=== PATIENT | male | born 1955 | race Asian ===

== ENCOUNTER 2022-11-22 18:55 | Inpatient (IN) | payer OTHER ==
[2022-11-22 19:34] VITALS: BMI 35.5
[2022-11-22] MEDS ORDERED: ACETAMINOPHEN 1000 MG/100 ML BAG IVPB ONE (20:02)
[2022-11-22] MEDS ORDERED: morphine SULFATE 4 MG/ML VIAL IVPUSH ONE (20:03)
[2022-11-22] MEDS ORDERED: ONDANSETRON 4 MG/2 ML VIAL IVPUSH ONE (20:03)
[2022-11-22] MEDS ORDERED: morphine CARPU-JECT 4 MG/1 ML DISP.SYRIN IVPUSH ONE (20:03)
[2022-11-22] MEDS ORDERED: morphine SULFATE 4 MG/ML VIAL ONE (20:14)
[2022-11-22 23:10] LABS: BASO % 0.6 % (0-2.0); EOS % 4.9 % (0-4.5); HEMATOCRIT 45.3 % (35.4-49); LYMPH % 34.3 % (8-40); MCH 29.2 pg (25.7-33.7); MCHC 33.2 g/dl (32.0-35.9); MEAN CELL VOLUME 88.1 fl (80-96); MEAN PLT VOLUME 8.1 fl (7.5-11.1); MONO % 9.9 % (3.8-10.2); NEUT % 50.3 % (42.8-82.8); PLATELET COUNT 199 10^3/uL (134-434); RBC 5.14 M/mm3 (4.00-5.60); RDW 14.5 % (11.9-15.9)
[2022-11-22 23:20] LABS: INR 0.97 (0.83-1.09); PROTHROMBIN TIME (PATIENT) 11.3 SEC (9.7-13.0)
[2022-11-22 23:23] LABS: ACTIVATED PTT 31.6 SECONDS (25.2-36.5)
[2022-11-23] LABS: POTASSIUM 4.4 mmol/L (3.5-5.1)
[2022-11-23 00:04] LABS: ALBUMIN 3.9 g/dl (3.4-5.0); BLOOD UREA NITROGEN 26.7 mg/dL (7-18); CALCIUM 7.6 mg/dL (8.5-10.1)
[2022-11-23 00:07] LABS: CREATININE 1.2 mg/dL (0.55-1.3)
[2022-11-23 00:09] LABS: BILIRUBIN,TOTAL 0.9 mg/dL (0.2-1); TOT PROT 7.7 g/dl (6.4-8.2)
[2022-11-23 00:51] LABS: LIPASE 508 U/L (73-393)
[2022-11-23] MEDS ORDERED: SODIUM CHLORIDE 0.9% 500 ML INFUS.BAG IV ONE (01:03)
[2022-11-23 01:07] LABS: EPI CELLS 2 /uL (0-25.1); HYALINE CASTS 0 /uL (0-3.1); PH,URINE 5.5 (5.0-8.0); URINE APPEARANCE CLEAR; URINE BACTERIA 0 /uL (0-1359); URINE BILIRUBIN NEGATIVE (NEGATIVE); URINE COLOR YELLOW; URINE GLUCOSE (UA) NEGATIVE (NEGATIVE); URINE KETONE NEGATIVE (NEGATIVE); URINE LEUK ESTERASE NEGATIVE (NEGATIVE); URINE NITRITE NEGATIVE (NEGATIVE); URINE PROTEIN 1+ (NEGATIVE); URINE RBC 13 /uL (0-23.9); URINE UROBILINOGEN 0.2 mg/dL (0.2-1.0); URINE WBC 2 /uL (0-25.8)
[2022-11-23 02:35] LABS: CHOLESTEROL 178 mg/dL (50-200)
[2022-11-23 02:36] LABS: LDL CHOLESTEROL (ONLY SJRH) 104 mg/dL (5-100)
[2022-11-23 02:38] LABS: HDL CHOLESTEROL 38 mg/dL (40-60)
[2022-11-23] MEDS ORDERED: KETOROLAC TROMETHAMINE 15 MG/ML VIAL IVPUSH ONE (03:00)
[2022-11-23] MEDS ORDERED: TRIMETHOBENZAMIDE HCL 200MG/2ML INJ IM PRN (04:17)
[2022-11-23] MEDS: LACTATED RINGERS SOLUTION 1,000 ML IV SCH (06:29)
[2022-11-23 06:48] LABS: HEMATOCRIT 43.4 % (35.4-49); HEMOGLOBIN 14.6 GM/dL (11.7-16.9); MCH 29.9 pg (25.7-33.7); MCHC 33.6 g/dl (32.0-35.9); MEAN PLT VOLUME 8.2 fl (7.5-11.1); PLATELET COUNT 188 10^3/uL (134-434); RBC 4.88 M/mm3 (4.00-5.60); RDW 14.5 % (11.9-15.9); WHITE BLOOD COUNT 4.7 K/mm3 (4.0-10.0)
[2022-11-23 07:04] LABS: POTASSIUM 4.4 mmol/L (3.5-5.1)
[2022-11-23 07:08] LABS: BLOOD UREA NITROGEN 24.4 mg/dL (7-18); CALCIUM 7.1 mg/dL (8.5-10.1)
[2022-11-23 07:09] LABS: ALBUMIN 3.6 g/dl (3.4-5.0)
[2022-11-23 07:11] LABS: PHOSPHOROUS 5.3 mg/dL (2.5-4.9)
[2022-11-23 07:12] LABS: CREATININE 1.2 mg/dL (0.55-1.3)
[2022-11-23 07:13] LABS: BILIRUBIN,TOTAL 0.7 mg/dL (0.2-1)
[2022-11-23] MEDS ORDERED: NICOTINE 21 MG/24 HOURS TOPICAL PATCH ONE (08:26)
[2022-11-23] MEDS ORDERED: LIDOCAINE 5% TOPICAL PATCH ONE (08:27)
[2022-11-23] MEDS ORDERED: HEPARIN NA (PORCINE) 5,000 UNITS/ML 1ML VIAL ONE (08:27)
[2022-11-23] MEDS ORDERED: KETOROLAC TROMETHAMINE 15 MG/ML VIAL ONE (08:27)
[2022-11-23] MEDS: INSULIN SLIDING SCALE (NOVOLOG) 1 VIAL SQ SCH ×3 (08:32→17:53)
[2022-11-23] MEDS: KETOROLAC TROMETHAMINE 15 MG/ML VIAL IVPUSH PRN ×2 (08:45→20:29)
[2022-11-23 10:20] LABS: HEMATOCRIT 43.3 % (35.4-49); HEMOGLOBIN 14.5 GM/dL (11.7-16.9); MCH 29.8 pg (25.7-33.7); MCHC 33.6 g/dl (32.0-35.9); MEAN CELL VOLUME 88.9 fl (80-96); MEAN PLT VOLUME 8.7 fl (7.5-11.1); PLATELET COUNT 194 10^3/uL (134-434); RBC 4.86 M/mm3 (4.00-5.60); RDW 14.4 % (11.9-15.9)
[2022-11-23] MEDS: LIDOCAINE 5% TOPICAL PATCH TP SCH (10:24)
[2022-11-23] MEDS: NICOTINE 21 MG/24 HOURS TOPICAL PATCH TD SCH (10:24)
[2022-11-23] MEDS: HEPARIN NA (PORCINE) 5,000 UNITS/ML 1ML VIAL SQ SCH ×2 (10:24→22:52)
[2022-11-23 10:44] LABS: ANISOCYTOSIS 0; HELMET CELLS 0; HOWELL-JOLLY BODIES 0; MACROCYTOSIS 0; OVALOCYTE 0; ROULEAU 0; SICKELED CELLS 0; TARGET CELLS 0; TEAR DROP CELLS 0; TOXIC GRANULATION 0
[2022-11-23 12:46] LABS: EPI CELLS 4 /uL (0-25.1); HYALINE CASTS 0 /uL (0-3.1); PH,URINE 5.5 (5.0-8.0); URINE APPEARANCE CLEAR; URINE BACTERIA 1 /uL (0-1359); URINE BILIRUBIN NEGATIVE (NEGATIVE); URINE COLOR YELLOW; URINE GLUCOSE (UA) NEGATIVE (NEGATIVE); URINE KETONE NEGATIVE (NEGATIVE); URINE LEUK ESTERASE NEGATIVE (NEGATIVE); URINE NITRITE NEGATIVE (NEGATIVE); URINE PROTEIN 1+ (NEGATIVE); URINE RBC 7 /uL (0-23.9); URINE UROBILINOGEN 0.2 mg/dL (0.2-1.0); URINE WBC 6 /uL (0-25.8)
[2022-11-23] MEDS ORDERED: PNEUMOC 20-VAL CONJ-DIP CRM/PF 0.5 ML SYRINGE IM ONE (21:30)
[2022-11-23] MEDS: LIDOCAINE PATCH REMOVAL MC SCH (22:52)
[2022-11-24] MEDS: LACTATED RINGERS SOLUTION 1,000 ML IV SCH (05:24)
[2022-11-24] MEDS: INSULIN SLIDING SCALE (NOVOLOG) 1 VIAL SQ SCH ×3 (06:58→17:21)
[2022-11-24 09:14] LABS: BASO % 0.5 % (0-2.0); EOS % 5.1 % (0-4.5); HEMATOCRIT 41.8 % (35.4-49); HEMOGLOBIN 14.1 GM/dL (11.7-16.9); LYMPH % 36.2 % (8-40); MCH 29.8 pg (25.7-33.7); MCHC 33.8 g/dl (32.0-35.9); MEAN CELL VOLUME 88.2 fl (80-96); MEAN PLT VOLUME 8.2 fl (7.5-11.1); MONO % 10.2 % (3.8-10.2); PLATELET COUNT 174 10^3/uL (134-434); RBC 4.74 M/mm3 (4.00-5.60); RDW 14.7 % (11.9-15.9); WHITE BLOOD COUNT 4.6 K/mm3 (4.0-10.0)
[2022-11-24 09:44] LABS: POTASSIUM 4.3 mmol/L (3.5-5.1)
[2022-11-24 10:10] LABS: CALCIUM 7.4 mg/dL (8.5-10.1)
[2022-11-24 10:11] LABS: ALBUMIN 3.2 g/dl (3.4-5.0); BLOOD UREA NITROGEN 22.8 mg/dL (7-18)
[2022-11-24 10:14] LABS: CREATININE 1.1 mg/dL (0.55-1.3)
[2022-11-24 10:15] LABS: TOT PROT 6.6 g/dl (6.4-8.2)
[2022-11-24] MEDS: NICOTINE 21 MG/24 HOURS TOPICAL PATCH TD SCH (10:22)
[2022-11-24] MEDS: LIDOCAINE 5% TOPICAL PATCH TP SCH (10:22)
[2022-11-24] MEDS: HEPARIN NA (PORCINE) 5,000 UNITS/ML 1ML VIAL SQ SCH ×2 (10:23→23:01)
[2022-11-24 10:34] LABS: BILIRUBIN,TOTAL 1.4 mg/dL (0.2-1)
[2022-11-24] MEDS: KETOROLAC TROMETHAMINE 15 MG/ML VIAL IVPUSH PRN (12:55)
[2022-11-24] MEDS: D5-1/2NS+20 MEQ KCL - 20 MEQ/1,000 ML INFUS.BAG IV SCH (17:29)
[2022-11-24] MEDS: CEFTRIAXONE 1 GM in DEXTROSE 5%-WATER - 50 ML IVPB SCH (17:29)
[2022-11-24] MEDS: LIDOCAINE PATCH REMOVAL MC SCH (23:01)
[2022-11-24] MEDS: METOPROLOL TARTRATE 25 MG TABLET (FP) PO SCH (23:01)
[2022-11-24] MEDS: ATORVASTATIN CA 20 MG TABLET (FP) PO SCH (23:01)
[2022-11-25] MEDS: INSULIN SLIDING SCALE (NOVOLOG) 1 VIAL SQ SCH ×3 (07:51→17:36)
[2022-11-25 09:18] LABS: BASO % 0.7 % (0-2.0); EOS % 4.7 % (0-4.5); HEMATOCRIT 48.4 % (35.4-49); HEMOGLOBIN 16.6 GM/dL (11.7-16.9); MCH 29.6 pg (25.7-33.7); MCHC 34.2 g/dl (32.0-35.9); MEAN CELL VOLUME 86.6 fl (80-96); MONO % 10.7 % (3.8-10.2); NEUT % 45.9 % (42.8-82.8); PLATELET COUNT 192 10^3/uL (134-434); RBC 5.59 M/mm3 (4.00-5.60); RDW 14.1 % (11.9-15.9); WHITE BLOOD COUNT 5.1 K/mm3 (4.0-10.0)
[2022-11-25] MEDS: LIDOCAINE 5% TOPICAL PATCH TP SCH (09:25)
[2022-11-25] MEDS: METOPROLOL TARTRATE 25 MG TABLET (FP) PO SCH ×2 (09:26→22:31)
[2022-11-25] MEDS: NICOTINE 21 MG/24 HOURS TOPICAL PATCH TD SCH (09:26)
[2022-11-25] MEDS: HEPARIN NA (PORCINE) 5,000 UNITS/ML 1ML VIAL SQ SCH ×2 (09:27→22:31)
[2022-11-25] MEDS: CEFTRIAXONE 1 GM in DEXTROSE 5%-WATER - 50 ML IVPB SCH (09:27)
[2022-11-25] MEDS: ISOSORBIDE MONONITRATE 10 MG TABLET PO SCH (09:27)
[2022-11-25] MEDS: VITAMIN B COMPLEX W/C COMBO TABLET (FP) PO SCH (09:28)
[2022-11-25 09:45] LABS: POTASSIUM 5.4 mmol/L (3.5-5.1)
[2022-11-25 09:48] LABS: ALBUMIN 3.5 g/dl (3.4-5.0); BLOOD UREA NITROGEN 15.6 mg/dL (7-18); CALCIUM 7.4 mg/dL (8.5-10.1)
[2022-11-25 09:52] LABS: CREATININE 1.1 mg/dL (0.55-1.3)
[2022-11-25 09:53] LABS: BILIRUBIN,TOTAL 1.1 mg/dL (0.2-1); TOT PROT 7.5 g/dl (6.4-8.2)
[2022-11-25] MEDS ORDERED: NITROGLYCERIN 0.1 MG/HOUR TD PATCH TD SCH (10:00)
[2022-11-25] MEDS: D5-1/2NS+20 MEQ KCL - 20 MEQ/1,000 ML INFUS.BAG IV SCH ×2 (17:40→22:47)
[2022-11-25] MEDS: ATORVASTATIN CA 20 MG TABLET (FP) PO SCH (22:31)
[2022-11-25] MEDS: LIDOCAINE PATCH REMOVAL MC SCH (22:31)
[2022-11-26] MEDS: INSULIN SLIDING SCALE (NOVOLOG) 1 VIAL SQ SCH ×3 (07:01→16:32)
[2022-11-26] MEDS: D5-1/2NS+20 MEQ KCL - 20 MEQ/1,000 ML INFUS.BAG IV SCH ×2 (07:30→17:33)
[2022-11-26] MEDS: METOPROLOL TARTRATE 25 MG TABLET (FP) PO SCH ×2 (09:51→22:03)
[2022-11-26] MEDS: HEPARIN NA (PORCINE) 5,000 UNITS/ML 1ML VIAL SQ SCH ×2 (09:51→22:02)
[2022-11-26] MEDS: LIDOCAINE 5% TOPICAL PATCH TP SCH (09:54)
[2022-11-26] MEDS: NICOTINE 21 MG/24 HOURS TOPICAL PATCH TD SCH (09:54)
[2022-11-26] MEDS: VITAMIN B COMPLEX W/C COMBO TABLET (FP) PO SCH (09:54)
[2022-11-26] MEDS: CEFTRIAXONE 1 GM in DEXTROSE 5%-WATER - 50 ML IVPB SCH (09:55)
[2022-11-26] MEDS: ISOSORBIDE MONONITRATE 10 MG TABLET PO SCH (09:55)
[2022-11-26] MEDS: KETOROLAC TROMETHAMINE 15 MG/ML VIAL IVPUSH PRN (21:28)
[2022-11-26] MEDS: LIDOCAINE PATCH REMOVAL MC SCH (22:01)
[2022-11-26] MEDS: ATORVASTATIN CA 20 MG TABLET (FP) PO SCH (22:02)
[2022-11-27] MEDS: INSULIN SLIDING SCALE (NOVOLOG) 1 VIAL SQ SCH ×3 (06:17→17:04)
[2022-11-27] MEDS ORDERED: amLODIPine BESYLATE 2.5 MG TABLET (FP) PO SCH (10:00)
[2022-11-27] MEDS: HEPARIN NA (PORCINE) 5,000 UNITS/ML 1ML VIAL SQ SCH ×2 (10:59→22:27)
[2022-11-27] MEDS: VITAMIN B COMPLEX W/C COMBO TABLET (FP) PO SCH (11:00)
[2022-11-27] MEDS: LIDOCAINE 5% TOPICAL PATCH TP SCH (11:05)
[2022-11-27] MEDS: amLODIPine BESYLATE 5 MG TABLET (FP) PO SCH (11:05)
[2022-11-27] MEDS: METOPROLOL TARTRATE 25 MG TABLET (FP) PO SCH ×2 (11:05→22:27)
[2022-11-27] MEDS: NICOTINE 21 MG/24 HOURS TOPICAL PATCH TD SCH (11:05)
[2022-11-27] MEDS: CEFTRIAXONE 1 GM in DEXTROSE 5%-WATER - 50 ML IVPB SCH (11:06)
[2022-11-27] MEDS: D5-1/2NS+20 MEQ KCL - 20 MEQ/1,000 ML INFUS.BAG IV SCH ×2 (11:07→18:11)
[2022-11-27] MEDS: ISOSORBIDE MONONITRATE 10 MG TABLET PO SCH (11:08)
[2022-11-27 12:17] LABS: BASO % 0.8 % (0-2.0); EOS % 7.5 % (0-4.5); HEMATOCRIT 48.5 % (35.4-49); HEMOGLOBIN 16.1 GM/dL (11.7-16.9); LYMPH % 33.4 % (8-40); MCH 29.1 pg (25.7-33.7); MCHC 33.3 g/dl (32.0-35.9); MEAN CELL VOLUME 87.5 fl (80-96); MEAN PLT VOLUME 7.8 fl (7.5-11.1); MONO % 10.4 % (3.8-10.2); NEUT % 47.9 % (42.8-82.8); PLATELET COUNT 179 10^3/uL (134-434); RBC 5.55 M/mm3 (4.00-5.60); RDW 14.3 % (11.9-15.9); WHITE BLOOD COUNT 4.9 K/mm3 (4.0-10.0)
[2022-11-27 12:21] LABS: INR 1.09 (0.83-1.09); PROTHROMBIN TIME (PATIENT) 12.6 SEC (9.7-13.0)
[2022-11-27] MEDS ORDERED: POLYETHYLENE GLYCOL (HEALTHYLAX) 3350 17 GM PACKET PO ONE (12:30)
[2022-11-27 12:46] LABS: POTASSIUM 4.9 mmol/L (3.5-5.1)
[2022-11-27 12:54] LABS: BLOOD UREA NITROGEN 13.7 mg/dL (7-18); CALCIUM 8.1 mg/dL (8.5-10.1)
[2022-11-27 12:55] LABS: ALBUMIN 3.5 g/dl (3.4-5.0); MAGNESIUM 2.1 mg/dL (1.8-2.4)
[2022-11-27 12:58] LABS: CREATININE 1.2 mg/dL (0.55-1.3)
[2022-11-27 12:59] LABS: BILIRUBIN,TOTAL 0.8 mg/dL (0.2-1); TOT PROT 7.5 g/dl (6.4-8.2)
[2022-11-27] MEDS: DOCUSATE SODIUM 100 MG CAPSULE (FP) PO SCH ×2 (15:02→22:26)
[2022-11-27] MEDS: LISINOPRIL 5 MG TABLET PO SCH (18:12)
[2022-11-27] MEDS: KETOROLAC TROMETHAMINE 15 MG/ML VIAL IVPUSH PRN (19:02)
[2022-11-27] MEDS: ATORVASTATIN CA 20 MG TABLET (FP) PO SCH (22:27)
[2022-11-27] MEDS: LIDOCAINE PATCH REMOVAL MC SCH (22:27)
[2022-11-28] MEDS: INSULIN SLIDING SCALE (NOVOLOG) 1 VIAL SQ SCH ×3 (06:28→17:50)
[2022-11-28] MEDS: LISINOPRIL 5 MG TABLET PO SCH ×2 (08:52→09:00)
[2022-11-28] MEDS: amLODIPine BESYLATE 5 MG TABLET (FP) PO SCH ×2 (08:52→09:00)
[2022-11-28] MEDS: METOPROLOL TARTRATE 25 MG TABLET (FP) PO SCH ×3 (08:52→21:04)
[2022-11-28 09:12] LABS: BASO % 0.7 % (0-2.0); EOS % 9.7 % (0-4.5); HEMATOCRIT 46.5 % (35.4-49); HEMOGLOBIN 15.8 GM/dL (11.7-16.9); LYMPH % 42.1 % (8-40); MCHC 33.9 g/dl (32.0-35.9); MEAN CELL VOLUME 88.6 fl (80-96); MEAN PLT VOLUME 8.2 fl (7.5-11.1); MONO % 11.4 % (3.8-10.2); NEUT % 36.1 % (42.8-82.8); PLATELET COUNT 182 10^3/uL (134-434); RBC 5.25 M/mm3 (4.00-5.60); RDW 14.3 % (11.9-15.9); WHITE BLOOD COUNT 3.8 K/mm3 (4.0-10.0)
[2022-11-28 09:23] LABS: INR 1.13 (0.83-1.09); PROTHROMBIN TIME (PATIENT) 13.1 SEC (9.7-13.0)
[2022-11-28 09:29] LABS: POTASSIUM 4.9 mmol/L (3.5-5.1)
[2022-11-28 09:33] LABS: ALBUMIN 3.4 g/dl (3.4-5.0); BLOOD UREA NITROGEN 13.7 mg/dL (7-18); MAGNESIUM 2.1 mg/dL (1.8-2.4)
[2022-11-28 09:36] LABS: CREATININE 1.2 mg/dL (0.55-1.3)
[2022-11-28 09:37] LABS: BILIRUBIN,TOTAL 0.8 mg/dL (0.2-1); TOT PROT 7.3 g/dl (6.4-8.2)
[2022-11-28] MEDS ORDERED: REGADENOSON 0.4 MG/5 ML PRE-FILLED SYRINGE IVPUSH ONE ×2 (09:47→10:00)
[2022-11-28] MEDS: DOCUSATE SODIUM 100 MG CAPSULE (FP) PO SCH ×2 (11:38→21:03)
[2022-11-28] MEDS: VITAMIN B COMPLEX W/C COMBO TABLET (FP) PO SCH (11:39)
[2022-11-28] MEDS: HEPARIN NA (PORCINE) 5,000 UNITS/ML 1ML VIAL SQ SCH ×2 (11:43→21:03)
[2022-11-28] MEDS: ISOSORBIDE MONONITRATE 10 MG TABLET PO SCH (12:59)
[2022-11-28] MEDS: CEFTRIAXONE 1 GM in DEXTROSE 5%-WATER - 50 ML IVPB SCH (13:42)
[2022-11-28] MEDS: NICOTINE 21 MG/24 HOURS TOPICAL PATCH TD SCH (13:43)
[2022-11-28] MEDS: LIDOCAINE 5% TOPICAL PATCH TP SCH (13:43)
[2022-11-28] MEDS: D5-1/2NS+20 MEQ KCL - 20 MEQ/1,000 ML INFUS.BAG IV SCH (17:51)
[2022-11-28] MEDS: ATORVASTATIN CA 20 MG TABLET (FP) PO SCH (21:03)
[2022-11-28] MEDS: LIDOCAINE PATCH REMOVAL MC SCH (21:03)
[2022-11-29] MEDS: INSULIN SLIDING SCALE (NOVOLOG) 1 VIAL SQ SCH ×3 (06:22→17:40)
[2022-11-29 09:07] LABS: INR 1.08 (0.83-1.09); PROTHROMBIN TIME (PATIENT) 12.5 SEC (9.7-13.0)
[2022-11-29 09:09] LABS: BASO % 0.8 % (0-2.0); EOS % 8.7 % (0-4.5); HEMATOCRIT 44.7 % (35.4-49); HEMOGLOBIN 14.7 GM/dL (11.7-16.9); MCH 28.9 pg (25.7-33.7); MCHC 32.9 g/dl (32.0-35.9); MEAN CELL VOLUME 87.9 fl (80-96); NEUT % 37.5 % (42.8-82.8); PLATELET COUNT 190 10^3/uL (134-434); RBC 5.08 M/mm3 (4.00-5.60); RDW 14.5 % (11.9-15.9); WHITE BLOOD COUNT 3.9 K/mm3 (4.0-10.0)
[2022-11-29 09:23] LABS: POTASSIUM 4.6 mmol/L (3.5-5.1)
[2022-11-29 09:32] LABS: CREATININE 1.2 mg/dL (0.55-1.3)
[2022-11-29 09:33] LABS: ALBUMIN 3.3 g/dl (3.4-5.0)
[2022-11-29 09:34] LABS: BILIRUBIN,TOTAL 0.4 mg/dL (0.2-1)
[2022-11-29] MEDS: METOPROLOL TARTRATE 25 MG TABLET (FP) PO SCH ×2 (09:34→21:39)
[2022-11-29] MEDS: amLODIPine BESYLATE 5 MG TABLET (FP) PO SCH (09:35)
[2022-11-29] MEDS: LISINOPRIL 5 MG TABLET PO SCH (09:35)
[2022-11-29] MEDS: LIDOCAINE 5% TOPICAL PATCH TP SCH (09:36)
[2022-11-29] MEDS: CEFTRIAXONE 1 GM in DEXTROSE 5%-WATER - 50 ML IVPB SCH (09:36)
[2022-11-29] MEDS: NICOTINE 21 MG/24 HOURS TOPICAL PATCH TD SCH (09:36)
[2022-11-29] MEDS: ISOSORBIDE MONONITRATE 10 MG TABLET PO SCH (09:36)
[2022-11-29] MEDS: HEPARIN NA (PORCINE) 5,000 UNITS/ML 1ML VIAL SQ SCH ×2 (09:36→21:39)
[2022-11-29 09:37] LABS: CALCIUM 7.9 mg/dL (8.5-10.1)
[2022-11-29] MEDS: VITAMIN B COMPLEX W/C COMBO TABLET (FP) PO SCH (09:37)
[2022-11-29] MEDS: DOCUSATE SODIUM 100 MG CAPSULE (FP) PO SCH ×2 (09:40→21:39)
[2022-11-29] MEDS: D5-1/2NS+20 MEQ KCL - 20 MEQ/1,000 ML INFUS.BAG IV SCH (17:41)
[2022-11-29] MEDS: ATORVASTATIN CA 20 MG TABLET (FP) PO SCH (21:39)
[2022-11-29] MEDS: LIDOCAINE PATCH REMOVAL MC SCH (21:39)
[2022-11-30] MEDS: INSULIN SLIDING SCALE (NOVOLOG) 1 VIAL SQ SCH ×3 (07:00→17:39)
[2022-11-30 08:41] LABS: BASO % 0.8 % (0-2.0); EOS % 9.2 % (0-4.5); HEMOGLOBIN 15.2 GM/dL (11.7-16.9); LYMPH % 41.6 % (8-40); MCH 29.9 pg (25.7-33.7); MCHC 33.7 g/dl (32.0-35.9); MEAN CELL VOLUME 88.8 fl (80-96); MEAN PLT VOLUME 8.3 fl (7.5-11.1); MONO % 12.7 % (3.8-10.2); NEUT % 35.7 % (42.8-82.8); PLATELET COUNT 200 10^3/uL (134-434); RBC 5.06 M/mm3 (4.00-5.60); RDW 14.4 % (11.9-15.9); WHITE BLOOD COUNT 3.6 K/mm3 (4.0-10.0)
[2022-11-30 08:47] LABS: INR 1.08 (0.83-1.09); PROTHROMBIN TIME (PATIENT) 12.5 SEC (9.7-13.0)
[2022-11-30 08:59] LABS: POTASSIUM 5.1 mmol/L (3.5-5.1)
[2022-11-30] MEDS: NICOTINE 21 MG/24 HOURS TOPICAL PATCH TD SCH (09:03)
[2022-11-30] MEDS: DOCUSATE SODIUM 100 MG CAPSULE (FP) PO SCH ×2 (09:04→21:38)
[2022-11-30] MEDS: LISINOPRIL 5 MG TABLET PO SCH (09:04)
[2022-11-30] MEDS: amLODIPine BESYLATE 5 MG TABLET (FP) PO SCH (09:04)
[2022-11-30] MEDS: VITAMIN B COMPLEX W/C COMBO TABLET (FP) PO SCH (09:04)
[2022-11-30] MEDS: METOPROLOL TARTRATE 25 MG TABLET (FP) PO SCH ×2 (09:04→21:38)
[2022-11-30] MEDS: ISOSORBIDE MONONITRATE 10 MG TABLET PO SCH (09:05)
[2022-11-30] MEDS: LIDOCAINE 5% TOPICAL PATCH TP SCH (09:05)
[2022-11-30] MEDS: HEPARIN NA (PORCINE) 5,000 UNITS/ML 1ML VIAL SQ SCH ×2 (09:05→21:37)
[2022-11-30 09:06] LABS: CALCIUM 7.9 mg/dL (8.5-10.1)
[2022-11-30 09:07] LABS: ALBUMIN 3.5 g/dl (3.4-5.0); BLOOD UREA NITROGEN 20.9 mg/dL (7-18); MAGNESIUM 2.1 mg/dL (1.8-2.4)
[2022-11-30 09:10] LABS: CREATININE 1.2 mg/dL (0.55-1.3)
[2022-11-30 09:11] LABS: BILIRUBIN,TOTAL 0.5 mg/dL (0.2-1); TOT PROT 7.3 g/dl (6.4-8.2)
[2022-11-30] MEDS: CEFTRIAXONE 1 GM in DEXTROSE 5%-WATER - 50 ML IVPB SCH (10:50)
[2022-11-30] MEDS: ACETAMINOPHEN 500 MG TABLET (FP) PO PRN (18:42)
[2022-11-30] MEDS: ATORVASTATIN CA 20 MG TABLET (FP) PO SCH (21:38)
[2022-11-30] MEDS ORDERED: INSULIN (NOVOLOG) ASPART 100 UNITS/ML 10ML VIAL ONE (21:45)
[2022-11-30] MEDS: LIDOCAINE PATCH REMOVAL MC SCH (21:59)
[2022-12-01] MEDS: INSULIN SLIDING SCALE (NOVOLOG) 1 VIAL SQ SCH ×3 (07:25→16:27)
[2022-12-01 09:32] LABS: BASO % 1.1 % (0-2.0); EOS % 7.4 % (0-4.5); HEMATOCRIT 46.2 % (35.4-49); HEMOGLOBIN 15.8 GM/dL (11.7-16.9); LYMPH % 47.2 % (8-40); MCH 29.8 pg (25.7-33.7); MCHC 34.2 g/dl (32.0-35.9); MEAN CELL VOLUME 87.2 fl (80-96); MONO % 12.5 % (3.8-10.2); NEUT % 31.8 % (42.8-82.8); PLATELET COUNT 235 10^3/uL (134-434); RBC 5.29 M/mm3 (4.00-5.60); RDW 14.5 % (11.9-15.9); WHITE BLOOD COUNT 5.1 K/mm3 (4.0-10.0)
[2022-12-01 09:37] LABS: INR 1.06 (0.83-1.09); PROTHROMBIN TIME (PATIENT) 12.3 SEC (9.7-13.0)
[2022-12-01] MEDS: LISINOPRIL 5 MG TABLET PO SCH (09:41)
[2022-12-01] MEDS: amLODIPine BESYLATE 5 MG TABLET (FP) PO SCH (09:41)
[2022-12-01] MEDS: CEFTRIAXONE 1 GM in DEXTROSE 5%-WATER - 50 ML IVPB SCH (09:41)
[2022-12-01] MEDS: ISOSORBIDE MONONITRATE 10 MG TABLET PO SCH (09:42)
[2022-12-01] MEDS: HEPARIN NA (PORCINE) 5,000 UNITS/ML 1ML VIAL SQ SCH ×2 (09:42→21:05)
[2022-12-01] MEDS: METOPROLOL TARTRATE 25 MG TABLET (FP) PO SCH ×2 (09:42→21:08)
[2022-12-01] MEDS: DOCUSATE SODIUM 100 MG CAPSULE (FP) PO SCH ×2 (09:43→21:05)
[2022-12-01] MEDS: NICOTINE 21 MG/24 HOURS TOPICAL PATCH TD SCH (09:43)
[2022-12-01] MEDS: VITAMIN B COMPLEX W/C COMBO TABLET (FP) PO SCH (09:45)
[2022-12-01] MEDS: LIDOCAINE 5% TOPICAL PATCH TP SCH (09:49)
[2022-12-01 09:50] LABS: POTASSIUM 5.1 mmol/L (3.5-5.1)
[2022-12-01 09:54] LABS: CALCIUM 8.5 mg/dL (8.5-10.1)
[2022-12-01 09:55] LABS: ALBUMIN 3.8 g/dl (3.4-5.0); BLOOD UREA NITROGEN 25.2 mg/dL (7-18); MAGNESIUM 2.2 mg/dL (1.8-2.4)
[2022-12-01 09:58] LABS: CREATININE 1.4 mg/dL (0.55-1.3)
[2022-12-01 09:59] LABS: BILIRUBIN,TOTAL 0.6 mg/dL (0.2-1)
[2022-12-01 10:02] LABS: TOT PROT 7.9 g/dl (6.4-8.2)
[2022-12-01] MEDS: KETOROLAC TROMETHAMINE 15 MG/ML VIAL IVPUSH PRN (12:01)
[2022-12-01] MEDS ORDERED: INSULIN (NOVOLOG) ASPART 100 UNITS/ML 10ML VIAL ONE (12:10)
[2022-12-01] MEDS: LIDOCAINE PATCH REMOVAL MC SCH (21:07)
[2022-12-01] MEDS: ATORVASTATIN CA 20 MG TABLET (FP) PO SCH (21:08)
[2022-12-02] MEDS: INSULIN SLIDING SCALE (NOVOLOG) 1 VIAL SQ SCH ×3 (05:59→16:30)
[2022-12-02] MEDS: LIDOCAINE 5% TOPICAL PATCH TP SCH (09:48)
[2022-12-02] MEDS: CEFTRIAXONE 1 GM in DEXTROSE 5%-WATER - 50 ML IVPB SCH (09:48)
[2022-12-02] MEDS: HEPARIN NA (PORCINE) 5,000 UNITS/ML 1ML VIAL SQ SCH (09:49)
[2022-12-02] MEDS: LISINOPRIL 5 MG TABLET PO SCH (09:49)
[2022-12-02] MEDS: DOCUSATE SODIUM 100 MG CAPSULE (FP) PO SCH ×2 (09:49→22:36)
[2022-12-02] MEDS: METOPROLOL TARTRATE 25 MG TABLET (FP) PO SCH ×2 (09:49→22:36)
[2022-12-02] MEDS: amLODIPine BESYLATE 5 MG TABLET (FP) PO SCH (09:49)
[2022-12-02] MEDS: NICOTINE 21 MG/24 HOURS TOPICAL PATCH TD SCH (09:49)
[2022-12-02] MEDS: ISOSORBIDE MONONITRATE 10 MG TABLET PO SCH (09:50)
[2022-12-02] MEDS: VITAMIN B COMPLEX W/C COMBO TABLET (FP) PO SCH (09:51)
[2022-12-02] MEDS: KETOROLAC TROMETHAMINE 15 MG/ML VIAL IVPUSH PRN (10:35)
[2022-12-02] MEDS ORDERED: INSULIN (NOVOLOG) ASPART 100 UNITS/ML 10ML VIAL ONE (10:46)
[2022-12-02 11:43] LABS: CHLORIDE 106 mmol/L (98-107); SODIUM 135 mmol/L (136-145)
[2022-12-02 11:48] LABS: CALCIUM 8.2 mg/dL (8.5-10.1)
[2022-12-02 11:49] LABS: ALBUMIN 3.5 g/dl (3.4-5.0); BLOOD UREA NITROGEN 31.4 mg/dL (7-18); CO2 24 mmol/L (21-32); GLUCOSE,RANDOM 178 mg/dL (74-106); MAGNESIUM 2.2 mg/dL (1.8-2.4)
[2022-12-02 11:51] LABS: CREATININE 1.5 mg/dL (0.55-1.3); SGPT/ALT 47 U/L (13-61)
[2022-12-02 11:52] LABS: BILIRUBIN,TOTAL 0.6 mg/dL (0.2-1); SGOT/AST 59 U/L (15-37)
[2022-12-02 11:53] LABS: TOT PROT 7.7 g/dl (6.4-8.2)
[2022-12-02 11:54] LABS: ALK PHOS 69 U/L (45-117)
[2022-12-02 11:59] LABS: ANION GAP 6 MMOL/L (8-16); POTASSIUM 6.9 mmol/L (3.5-5.1)
[2022-12-02 12:14] LABS: BASO % 1.3 % (0-2.0); EOS % 7.2 % (0-4.5); HEMATOCRIT 44.9 % (35.4-49); HEMOGLOBIN 15.4 GM/dL (11.7-16.9); LYMPH % 47.4 % (8-40); MCH 29.8 pg (25.7-33.7); MCHC 34.4 g/dl (32.0-35.9); MEAN CELL VOLUME 86.5 fl (80-96); MEAN PLT VOLUME 8.1 fl (7.5-11.1); MONO % 11.4 % (3.8-10.2); NEUT % 32.7 % (42.8-82.8); PLATELET COUNT 242 10^3/uL (134-434); RBC 5.18 M/mm3 (4.00-5.60); RDW 14.3 % (11.9-15.9); WHITE BLOOD COUNT 6.1 K/mm3 (4.0-10.0)
[2022-12-02 12:19] LABS: INR 1.09 (0.83-1.09); PROTHROMBIN TIME (PATIENT) 12.6 SEC (9.7-13.0)
[2022-12-02] MEDS: SODIUM CHLORIDE 1,000 ML IV SCH (13:09)
[2022-12-02] MEDS ORDERED: BISACODYL 10 MG SUPP.RECT PR ONE (13:26)
[2022-12-02] MEDS ORDERED: POLYETHYLENE GLYCOL (HEALTHYLAX) 3350 17 GM PACKET PO ONE (13:30)
[2022-12-02] MEDS: ACETAMINOPHEN 500 MG TABLET (FP) PO PRN (22:35)
[2022-12-02] MEDS: ATORVASTATIN CA 20 MG TABLET (FP) PO SCH (22:36)
[2022-12-02] MEDS: LIDOCAINE PATCH REMOVAL MC SCH (22:36)
[2022-12-03] MEDS: INSULIN SLIDING SCALE (NOVOLOG) 1 VIAL SQ SCH ×3 (06:06→17:34)
[2022-12-03] MEDS: CEFTRIAXONE 1 GM in DEXTROSE 5%-WATER - 50 ML IVPB SCH (09:40)
[2022-12-03] MEDS: METOPROLOL TARTRATE 25 MG TABLET (FP) PO SCH ×2 (09:48→22:13)
[2022-12-03] MEDS: LISINOPRIL 5 MG TABLET PO SCH (09:48)
[2022-12-03] MEDS: VITAMIN B COMPLEX W/C COMBO TABLET (FP) PO SCH (09:49)
[2022-12-03] MEDS: amLODIPine BESYLATE 5 MG TABLET (FP) PO SCH (09:49)
[2022-12-03] MEDS: ISOSORBIDE MONONITRATE 10 MG TABLET PO SCH (09:49)
[2022-12-03] MEDS: DOCUSATE SODIUM 100 MG CAPSULE (FP) PO SCH ×2 (09:49→22:12)
[2022-12-03] MEDS: LIDOCAINE 5% TOPICAL PATCH TP SCH (09:50)
[2022-12-03] MEDS: NICOTINE 21 MG/24 HOURS TOPICAL PATCH TD SCH (09:51)
[2022-12-03 11:48] LABS: EOS % 7.4 % (0-4.5); HEMATOCRIT 44.2 % (35.4-49); HEMOGLOBIN 15.2 GM/dL (11.7-16.9); LYMPH % 44.8 % (8-40); MCHC 34.4 g/dl (32.0-35.9); MEAN CELL VOLUME 87.2 fl (80-96); MEAN PLT VOLUME 7.7 fl (7.5-11.1); MONO % 11.9 % (3.8-10.2); NEUT % 34.9 % (42.8-82.8); PLATELET COUNT 210 10^3/uL (134-434); RBC 5.07 M/mm3 (4.00-5.60); RDW 14.5 % (11.9-15.9); WHITE BLOOD COUNT 5.6 K/mm3 (4.0-10.0)
[2022-12-03 12:23] LABS: POTASSIUM 4.7 mmol/L (3.5-5.1)
[2022-12-03 12:33] LABS: ALBUMIN 3.7 g/dl (3.4-5.0); BLOOD UREA NITROGEN 31.6 mg/dL (7-18); CREATININE 1.3 mg/dL (0.55-1.3)
[2022-12-03 12:35] LABS: BILIRUBIN,TOTAL 0.6 mg/dL (0.2-1); CALCIUM 7.8 mg/dL (8.5-10.1); TOT PROT 7.6 g/dl (6.4-8.2)
[2022-12-03 12:36] LABS: MAGNESIUM 2.3 mg/dL (1.8-2.4)
[2022-12-03] MEDS ORDERED: BUPIVACAINE HCL/PF 0.25% (2.5MG/ML) 10 ML VIAL ONE (12:36)
[2022-12-03] MEDS ORDERED: cefOXitin SODIUM 2 GM VIAL (RESTRICTED TO ID) IVPB ONE ×2 (12:36)
[2022-12-03] MEDS: SODIUM CHLORIDE 1,000 ML IV SCH (12:42)
[2022-12-03] MEDS ORDERED: ACETAMINOPHEN 325 MG TABLET (FP) PO PRN ×2 (14:31→16:39)
[2022-12-03] MEDS ORDERED: oxyCODONE HCL 5 MG TABLET PO PRN ×2 (14:31→14:35)
[2022-12-03] MEDS ORDERED: ONDANSETRON 4 MG/2 ML VIAL IVPUSH PRN ×2 (14:31→16:39)
[2022-12-03] MEDS ORDERED: PROPOFOL 20 ML ONE (14:35)
[2022-12-03] MEDS ORDERED: SUCCINYLCHOLINE CHLORIDE 200 MG/10 ML SYRINGE ONE (14:35)
[2022-12-03] MEDS ORDERED: LACTATED RINGERS SOLUTION 1,000 ML IV SCH ×2 (14:45→16:39)
[2022-12-03] MEDS ORDERED: DEXAMETHASONE SOD PHOSPHATE 4 MG/1 ML VIAL ONE (15:14)
[2022-12-03] MEDS ORDERED: ONDANSETRON 4 MG/2 ML VIAL ONE (15:14)
[2022-12-03] MEDS ORDERED: BUPIVACAINE HCL/PF 0.25% (2.5MG/ML) 10 ML VIAL IJ ONE ×2 (15:18)
[2022-12-03] MEDS ORDERED: SUGAMMADEX SODIUM 200 MG/2 ML VIAL ONE (15:48)
[2022-12-03] MEDS ORDERED: SODIUM CHLORIDE 1,000 ML IV SCH (16:39)
[2022-12-03] MEDS ORDERED: TRIMETHOBENZAMIDE HCL 200MG/2ML INJ IM PRN (16:39)
[2022-12-03] MEDS ORDERED: ACETAMINOPHEN 500 MG TABLET (FP) PO PRN (16:39)
[2022-12-03] MEDS ORDERED: ATORVASTATIN CA 20 MG TABLET (FP) PO SCH (22:00)
[2022-12-03] MEDS ORDERED: LIDOCAINE PATCH REMOVAL MC SCH ×2 (22:00)
[2022-12-03] MEDS: oxyCODONE HCL 5 MG TABLET PO PRN (22:09)
[2022-12-03] MEDS: HEPARIN NA (PORCINE) 5,000 UNITS/ML 1ML VIAL SQ SCH (22:13)
[2022-12-04] MEDS: INSULIN SLIDING SCALE (NOVOLOG) 1 VIAL SQ SCH ×2 (07:02→11:54)
[2022-12-04 08:08] VITALS: BP 122/63; PULSE 71; RESP 18; TEMP 97.7
[2022-12-04] MEDS ORDERED: ISOSORBIDE MONONITRATE 10 MG TABLET PO SCH (10:00)
[2022-12-04] MEDS ORDERED: NICOTINE 21 MG/24 HOURS TOPICAL PATCH TD SCH (10:00)
[2022-12-04] MEDS ORDERED: VITAMIN B COMPLEX W/C COMBO TABLET (FP) PO SCH (10:00)
[2022-12-04] MEDS ORDERED: LISINOPRIL 5 MG TABLET PO SCH (10:00)
[2022-12-04] MEDS ORDERED: LIDOCAINE 5% TOPICAL PATCH TP SCH (10:00)
[2022-12-04] MEDS ORDERED: amLODIPine BESYLATE 5 MG TABLET (FP) PO SCH (10:00)
[2022-12-04] MEDS: METOPROLOL TARTRATE 25 MG TABLET (FP) PO SCH (10:29)
[2022-12-04] MEDS: DOCUSATE SODIUM 100 MG CAPSULE (FP) PO SCH (10:29)
[2022-12-04] MEDS: HEPARIN NA (PORCINE) 5,000 UNITS/ML 1ML VIAL SQ SCH (10:31)
[2022-12-04] MEDS: oxyCODONE HCL 5 MG TABLET PO PRN (10:40)
[2022-12-04 10:59] LABS: BASO % 0.2 % (0-2.0); EOS % 0.5 % (0-4.5); HEMATOCRIT 40.8 % (35.4-49); HEMOGLOBIN 14.1 GM/dL (11.7-16.9); LYMPH % 18.2 % (8-40); MCH 30.2 pg (25.7-33.7); MCHC 34.6 g/dl (32.0-35.9); MEAN CELL VOLUME 87.2 fl (80-96); MONO % 8.5 % (3.8-10.2); NEUT % 72.6 % (42.8-82.8); PLATELET COUNT 232 10^3/uL (134-434); RBC 4.67 M/mm3 (4.00-5.60); RDW 14.4 % (11.9-15.9); WHITE BLOOD COUNT 7.9 K/mm3 (4.0-10.0)
[2022-12-04 11:01] LABS: INR 1.09 (0.83-1.09); PROTHROMBIN TIME (PATIENT) 12.6 SEC (9.7-13.0)
[2022-12-04 11:21] LABS: ALBUMIN 3.4 g/dl (3.4-5.0); BLOOD UREA NITROGEN 35.6 mg/dL (7-18)
[2022-12-04 11:22] LABS: MAGNESIUM 2.2 mg/dL (1.8-2.4)
[2022-12-04 11:24] LABS: CREATININE 1.5 mg/dL (0.55-1.3)
[2022-12-04 11:26] LABS: BILIRUBIN,TOTAL 0.6 mg/dL (0.2-1); TOT PROT 7.2 g/dl (6.4-8.2)
== END 2022-12-04 13:51 | disposition home or self-care (01) | DRG 263 ==
LOC: JER 18:55 → JERBED 11-23 02:04 → OBSVTOIN 11-23 04:17 → J8W 11-23 19:20
PROVIDERS: ADMIT Internal Medicine; ATTEND Nurse Practitioner Acute Care
PROC: 0FT44ZZ Resection of Gallbladder, Percutaneous Endoscopic Approach (ICD-10-PCS; principal; 2022-12-03 16:30)
DX: K80.00 Calculus of gallbladder with acute cholecystitis without obstruction (principal); I25.10 Atherosclerotic heart disease of native coronary artery without angina pectoris; E78.5 Hyperlipidemia, unspecified; I10 Essential (primary) hypertension; E11.9 Type 2 diabetes mellitus without complications; I45.10 Unspecified right bundle-branch block; E83.51 Hypocalcemia; R10.11 Right upper quadrant pain; F17.210 Nicotine dependence, cigarettes, uncomplicated; Z95.1 Presence of aortocoronary bypass graft; E66.9 Obesity, unspecified; Z68.35 Body mass index [BMI] 35.0-35.9, adult
CPT/HCPCS: 0241U-QW; 36415; 71045-TC-FY; 71250-TC; 74176-TC; 76705-TC; 78226-TC; 78452-TC; 80053; 80061; 81003; 82550; 82962; 83036; 83690; 83735; 84100; 84132; 84484; 85025; 85027; 85610; 85730; 86850; 86900; 86901; 87086; 88304-TC; 90677; 93005; 93010; 93017; 93306-TC; 94760; 97116-GP; 97161-GP; 99285-25; A9502; A9537; G0378; J1644; J2785

== ENCOUNTER 2023-10-03 10:04 | Observation (INO) | payer OTHER ==
[2023-10-03 11:36] LABS: VENOUS BASE EXCESS -1.3 mmol/L (-2-2); VENOUS O2 SATURATION 57.3 % (70-80); VENOUS PCO2 46.5 mmHg (38-52); VENOUS PH 7.345 (7.310-7.410)
[2023-10-03 11:47] LABS: INR 0.97 (0.83-1.09); PROTHROMBIN TIME (PATIENT) 11.3 SEC (9.7-13.0)
[2023-10-03 11:49] LABS: BASO % 0.6 % (0-2.0); EOS % 3.9 % (0-4.5); HEMATOCRIT 45.9 % (35.4-49); HEMOGLOBIN 15.6 GM/dL (11.7-16.9); LYMPH % 34.7 % (8-40); MCH 30.6 pg (25.7-33.7); MCHC 34.1 g/dl (32.0-35.9); MEAN CELL VOLUME 89.9 fl (80-96); MEAN PLT VOLUME 8.2 fl (7.5-11.1); MONO % 8.6 % (3.8-10.2); NEUT % 52.2 % (42.8-82.8); PLATELET COUNT 223 10^3/uL (134-434); RDW 14.9 % (11.9-15.9); WHITE BLOOD COUNT 5.9 K/mm3 (4.0-10.0)
[2023-10-03 12:02] LABS: POTASSIUM 4.3 mmol/L (3.5-5.1)
[2023-10-03 12:05] LABS: CALCIUM 8.4 mg/dL (8.5-10.1)
[2023-10-03 12:06] LABS: ALBUMIN 3.9 g/dl (3.4-5.0); BLOOD UREA NITROGEN 22.4 mg/dL (7-18)
[2023-10-03 12:08] LABS: CREATININE 1.5 mg/dL (0.55-1.3)
[2023-10-03 12:10] LABS: BILIRUBIN,TOTAL 0.7 mg/dL (0.2-1)
[2023-10-03] MEDS ORDERED: LIDOCAINE 5% TOPICAL PATCH TP ONE (13:21)
[2023-10-03] MEDS ORDERED: METHOCARBAMOL 500 MG TABLET PO ONE (13:21)
[2023-10-03] MEDS ORDERED: ACETAMINOPHEN 1000 MG/100 ML BAG IVPB ONE (13:21)
[2023-10-03] MEDS ORDERED: LIDOCAINE 4% PATCH TP ONE ×2 (13:24→13:30)
[2023-10-03] MEDS ORDERED: METHOCARBAMOL 500 MG TABLET ONE (13:30)
[2023-10-03] MEDS ORDERED: ACETAMINOPHEN INJECTION 100 ML IVPB ONE (13:30)
[2023-10-03] MEDS: INSULIN ASPART SLIDING SCALE (NOVOLOG) 1 VIAL SQ SCH (19:03)
[2023-10-03 19:18] LABS: CHOLESTEROL 131 mg/dL (50-200)
[2023-10-03 19:19] LABS: LDL CHOLESTEROL (ONLY SJRH) 71 mg/dL (5-100)
[2023-10-03 19:21] LABS: HDL CHOLESTEROL 35 mg/dL (40-60)
[2023-10-03] MEDS ORDERED: LIDOCAINE PATCH REMOVAL MC ONE (22:00)
[2023-10-03] MEDS ORDERED: METOPROLOL TARTRATE 25 MG TABLET (FP) PO SCH (22:00)
[2023-10-03] MEDS ORDERED: ATORVASTATIN CA 20 MG TABLET (FP) PO SCH (22:00)
[2023-10-03] MEDS: HEPARIN NA (PORCINE) 5,000 UNITS/ML 1ML VIAL SQ SCH (22:17)
[2023-10-03] MEDS: LIDOCAINE PATCH REMOVAL MC SCH (22:17)
[2023-10-03] MEDS: METOPROLOL TARTRATE 50 MG TABLET (FP) PO SCH (22:18)
[2023-10-03] MEDS: ISOSORBIDE MONONITRATE 30 MG TAB.SR.24H (FP) PO SCH (22:18)
[2023-10-03] MEDS: ACETAMINOPHEN 1000 MG/100 ML BAG IVPB PRN (22:19)
[2023-10-04 00:10] VITALS: BMI 41.3
[2023-10-04] MEDS: INSULIN ASPART SLIDING SCALE (NOVOLOG) 1 VIAL SQ SCH ×3 (06:27→18:15)
[2023-10-04] MEDS: HEPARIN NA (PORCINE) 5,000 UNITS/ML 1ML VIAL SQ SCH ×3 (06:27→21:59)
[2023-10-04 08:31] LABS: BASO % 0.7 % (0-2.0); EOS % 5.3 % (0-4.5); HEMATOCRIT 46.8 % (35.4-49); HEMOGLOBIN 15.9 GM/dL (11.7-16.9); LYMPH % 43.3 % (8-40); MCH 30.4 pg (25.7-33.7); MEAN CELL VOLUME 89.3 fl (80-96); MEAN PLT VOLUME 8.2 fl (7.5-11.1); MONO % 8.9 % (3.8-10.2); NEUT % 41.8 % (42.8-82.8); PLATELET COUNT 209 10^3/uL (134-434); RBC 5.24 M/mm3 (4.00-5.60); RDW 14.8 % (11.9-15.9); WHITE BLOOD COUNT 5.3 K/mm3 (4.0-10.0)
[2023-10-04 08:44] LABS: POTASSIUM 4.3 mmol/L (3.5-5.1)
[2023-10-04 08:50] LABS: ALBUMIN 3.7 g/dl (3.4-5.0); CALCIUM 8.1 mg/dL (8.5-10.1)
[2023-10-04 08:53] LABS: CREATININE 1.3 mg/dL (0.55-1.3)
[2023-10-04 08:54] LABS: TOT PROT 7.7 g/dl (6.4-8.2)
[2023-10-04] MEDS ORDERED: LISINOPRIL 5 MG TABLET PO SCH (10:00)
[2023-10-04] MEDS ORDERED: ISOSORBIDE MONONITRATE 10 MG TABLET PO SCH (10:00)
[2023-10-04] MEDS: ACETAMINOPHEN 1000 MG/100 ML BAG IVPB PRN (10:52)
[2023-10-04] MEDS: METOPROLOL TARTRATE 50 MG TABLET (FP) PO SCH ×2 (10:54→21:59)
[2023-10-04] MEDS: amLODIPine BESYLATE 5 MG TABLET (FP) PO SCH (10:54)
[2023-10-04] MEDS: ISOSORBIDE MONONITRATE 30 MG TAB.SR.24H (FP) PO SCH (10:54)
[2023-10-04] MEDS: NICOTINE 21 MG/24 HOURS TOPICAL PATCH TD SCH (10:54)
[2023-10-04] MEDS ORDERED: LISINOPRIL 5 MG TABLET PO ONE (18:10)
[2023-10-04] MEDS ORDERED: ATORVASTATIN CA 20 MG TABLET (FP) PO SCH (18:16)
[2023-10-04] MEDS ORDERED: ACETAMINOPHEN 1000 MG/100 ML BAG IVPB ONE (19:59)
[2023-10-04] MEDS: LIDOCAINE PATCH REMOVAL MC SCH (22:01)
[2023-10-05] MEDS: HEPARIN NA (PORCINE) 5,000 UNITS/ML 1ML VIAL SQ SCH ×2 (06:19→13:33)
[2023-10-05] MEDS: INSULIN ASPART SLIDING SCALE (NOVOLOG) 1 VIAL SQ SCH ×2 (06:20→11:45)
[2023-10-05 07:07] LABS: BASO % 0.6 % (0-2.0); EOS % 4.9 % (0-4.5); HEMATOCRIT 44.7 % (35.4-49); HEMOGLOBIN 15.2 GM/dL (11.7-16.9); MCH 30.3 pg (25.7-33.7); MCHC 33.9 g/dl (32.0-35.9); MEAN CELL VOLUME 89.3 fl (80-96); MEAN PLT VOLUME 8.4 fl (7.5-11.1); MONO % 9.7 % (3.8-10.2); NEUT % 44.8 % (42.8-82.8); PLATELET COUNT 196 10^3/uL (134-434); RBC 5.01 M/mm3 (4.00-5.60); RDW 14.5 % (11.9-15.9); WHITE BLOOD COUNT 5.4 K/mm3 (4.0-10.0)
[2023-10-05 07:33] LABS: POTASSIUM 4.2 mmol/L (3.5-5.1)
[2023-10-05 07:48] LABS: CALCIUM 8.1 mg/dL (8.5-10.1)
[2023-10-05 07:49] LABS: ALBUMIN 3.5 g/dl (3.4-5.0); BLOOD UREA NITROGEN 24.7 mg/dL (7-18); MAGNESIUM 2.4 mg/dL (1.8-2.4)
[2023-10-05 07:52] LABS: CREATININE 1.4 mg/dL (0.55-1.3); PHOSPHOROUS 4.5 mg/dL (2.5-4.9)
[2023-10-05 07:53] LABS: BILIRUBIN,TOTAL 0.8 mg/dL (0.2-1); TOT PROT 7.6 g/dl (6.4-8.2)
[2023-10-05] MEDS: ISOSORBIDE MONONITRATE 30 MG TAB.SR.24H (FP) PO SCH (09:16)
[2023-10-05] MEDS: NICOTINE 21 MG/24 HOURS TOPICAL PATCH TD SCH (09:16)
[2023-10-05] MEDS: METOPROLOL TARTRATE 50 MG TABLET (FP) PO SCH (09:16)
[2023-10-05] MEDS: amLODIPine BESYLATE 5 MG TABLET (FP) PO SCH (09:16)
[2023-10-05 09:28] VITALS: BP 151/85; PULSE 74; RESP 18; TEMP 97.9
[2023-10-05] MEDS ORDERED: ACETAMINOPHEN 1000 MG/100 ML BAG IVPB PRN (09:30)
[2023-10-05] MEDS ORDERED: ASPIRIN 81 MG CHEWABLE TABLETS PO SCH (10:00)
[2023-10-05] MEDS ORDERED: LISINOPRIL 10 MG TABLET PO SCH (10:00)
[2023-10-05] MEDS ORDERED: CYCLOBENZAPRINE HCL 5 MG TABLET PO ONE (11:15)
== END 2023-10-05 15:01 | disposition home health service (06) ==
LOC: JER 10:04 → JERBED 14:54 → J4W 19:25
PROVIDERS: ADMIT Internal Medicine; ATTEND Internal Medicine
PROC: 3E033NZ Introduction of Analgesics, Hypnotics, Sedatives into Peripheral Vein, Percutaneous Approach (ICD-10-PCS; principal; 2023-10-03)
PROC: 3E013VG Introduction of Insulin into Subcutaneous Tissue, Percutaneous Approach (ICD-10-PCS; 2023-10-03)
DX: I95.1 Orthostatic hypotension (principal); I25.10 Atherosclerotic heart disease of native coronary artery without angina pectoris; F03.90 Unspecified dementia, unspecified severity, without behavioral disturbance, psychotic disturbance, mood disturbance, and anxiety; I11.0 Hypertensive heart disease with heart failure; E11.9 Type 2 diabetes mellitus without complications; E78.5 Hyperlipidemia, unspecified; Z95.1 Presence of aortocoronary bypass graft
CPT/HCPCS: 0241U-QW; 36415; 71275-TC; 74174-TC; 80053; 80061; 82803; 82962; 83036; 83690; 83735; 83880; 84100; 84443; 84478; 84484; 85025; 85610; 85730; 86850; 86900; 86901; 93005; 93010; 96372; 96374; 96376; 99285-25; G0378; J1644; Q9967

== ENCOUNTER 2023-10-08 17:14 | Inpatient (IN) | payer OTHER ==
[2023-10-08] MEDS ORDERED: ACETAMINOPHEN 1000 MG/100 ML BAG IVPB ONE (19:18)
[2023-10-08] MEDS ORDERED: MAG HYDROX/AL HYDROX/SIMETH 30 ML UNIT-DOSE CUP PO ONE (19:18)
[2023-10-08] MEDS ORDERED: FAMOTIDINE 20 MG/50 ML IVPB 20 MG/50 ML MG IVPB ONE ×2 (19:18→20:51)
[2023-10-08 20:29] LABS: BASO % 0.9 % (0-2.0); EOS % 4.9 % (0-4.5); HEMATOCRIT 48.3 % (35.4-49); HEMOGLOBIN 15.9 GM/dL (11.7-16.9); LYMPH % 37.2 % (8-40); MCH 30.1 pg (25.7-33.7); MCHC 32.9 g/dl (32.0-35.9); MEAN CELL VOLUME 91.3 fl (80-96); MONO % 10.2 % (3.8-10.2); NEUT % 46.8 % (42.8-82.8); PLATELET COUNT 218 10^3/uL (134-434); RBC 5.29 M/mm3 (4.00-5.60); RDW 14.7 % (11.9-15.9); WHITE BLOOD COUNT 5.9 K/mm3 (4.0-10.0)
[2023-10-08 20:41] LABS: INR 1.03 (0.83-1.09); PROTHROMBIN TIME (PATIENT) 11.9 SEC (9.7-13.0)
[2023-10-08 20:43] LABS: ACTIVATED PTT 32.1 SECONDS (25.2-36.5)
[2023-10-08 20:51] LABS: POTASSIUM 4.6 mmol/L (3.5-5.1)
[2023-10-08] MEDS ORDERED: MAG HYDROX/AL HYDROX/SIMETH 30 ML UNIT-DOSE CUP ONE (20:51)
[2023-10-08] MEDS ORDERED: ACETAMINOPHEN INJECTION 100 ML IVPB ONE (20:51)
[2023-10-08 20:53] LABS: CALCIUM 8.1 mg/dL (8.5-10.1)
[2023-10-08 20:54] LABS: ALBUMIN 3.7 g/dl (3.4-5.0); BLOOD UREA NITROGEN 32.6 mg/dL (7-18)
[2023-10-08 20:57] LABS: CREATININE 1.6 mg/dL (0.55-1.3)
[2023-10-08 20:58] LABS: TOT PROT 8.1 g/dl (6.4-8.2)
[2023-10-08 21:00] LABS: BILIRUBIN,TOTAL 0.6 mg/dL (0.2-1)
[2023-10-08 21:01] LABS: N-TERMINAL BNP 181.7 pg/ml (5-125)
[2023-10-08] MEDS ORDERED: SODIUM CHLORIDE 0.9% 500 ML INFUS.BAG IV ONE (21:13)
[2023-10-08] MEDS ORDERED: ACETAMINOPHEN 325 MG TABLET (FP) PO PRN (23:27)
[2023-10-08] MEDS ORDERED: NITROGLYCERIN SUBLINGUAL 1/150 0.4 MG TAB SL PRN (23:27)
[2023-10-08] MEDS ORDERED: SODIUM CHLORIDE 1,000 ML IV SCH ×2 (23:30→23:47)
[2023-10-08] MEDS ORDERED: PANTOPRAZOLE SODIUM 40 MG VIAL IVPUSH ONE (23:52)
[2023-10-09] MEDS ORDERED: PANTOPRAZOLE SODIUM 40 MG VIAL ONE (01:49)
[2023-10-09] MEDS ORDERED: HEPARIN NA (PORCINE) 5,000 UNITS/ML 1ML VIAL SQ SCH (06:00)
[2023-10-09 06:54] LABS: BASO % 0.8 % (0-2.0); EOS % 5.3 % (0-4.5); HEMATOCRIT 45.7 % (35.4-49); LYMPH % 45.4 % (8-40); MCH 29.9 pg (25.7-33.7); MCHC 32.9 g/dl (32.0-35.9); MEAN PLT VOLUME 8.3 fl (7.5-11.1); NEUT % 38.5 % (42.8-82.8); PLATELET COUNT 200 10^3/uL (134-434); RBC 5.03 M/mm3 (4.00-5.60); RDW 14.8 % (11.9-15.9); WHITE BLOOD COUNT 4.8 K/mm3 (4.0-10.0)
[2023-10-09 07:16] LABS: POTASSIUM 4.4 mmol/L (3.5-5.1)
[2023-10-09 07:22] LABS: ALBUMIN 3.5 g/dl (3.4-5.0); CALCIUM 7.6 mg/dL (8.5-10.1)
[2023-10-09 07:23] LABS: BLOOD UREA NITROGEN 29.6 mg/dL (7-18); MAGNESIUM 2.4 mg/dL (1.8-2.4)
[2023-10-09 07:26] LABS: CREATININE 1.5 mg/dL (0.55-1.3)
[2023-10-09 07:27] LABS: BILIRUBIN,TOTAL 0.8 mg/dL (0.2-1); TOT PROT 7.4 g/dl (6.4-8.2)
[2023-10-09] MEDS ORDERED: ONDANSETRON 4 MG/2 ML VIAL IVPUSH PRN (07:32)
[2023-10-09] MEDS ORDERED: ACETAMINOPHEN 1000 MG/100 ML BAG IVPB PRN (07:35)
[2023-10-09] MEDS: INSULIN ASPART SLIDING SCALE (NOVOLOG) 1 VIAL SQ SCH ×4 (07:39→22:14)
[2023-10-09] MEDS ORDERED: ACETAMINOPHEN 1000 MG/100 ML BAG IVPB ONE (07:46)
[2023-10-09] MEDS ORDERED: ONDANSETRON 4 MG/2 ML VIAL IVPUSH ONE (07:46)
[2023-10-09] MEDS ORDERED: PANTOPRAZOLE SODIUM 40 MG VIAL IVPUSH SCH (10:00)
[2023-10-09] MEDS ORDERED: ASPIRIN COATED 81 MG TABLET.EC PO SCH (10:00)
[2023-10-09] MEDS ORDERED: SODIUM CHLORIDE 1,000 ML IV SCH (10:15)
[2023-10-09] MEDS ORDERED: ISOSORBIDE MONONITRATE 30 MG TAB.SR.24H (FP) PO ONE (10:50)
[2023-10-09] MEDS: ISOSORBIDE MONONITRATE 30 MG TAB.SR.24H (FP) PO SCH (10:50)
[2023-10-09] MEDS: amLODIPine BESYLATE 5 MG TABLET (FP) PO SCH (10:51)
[2023-10-09] MEDS: PANTOPRAZOLE SODIUM 40 MG VIAL IVPUSH SCH ×2 (10:51→21:52)
[2023-10-09] MEDS: METOPROLOL TARTRATE 50 MG TABLET (FP) PO SCH ×2 (10:51→21:52)
[2023-10-09] MEDS ORDERED: MAG HYDROX/AL HYDROX/SIMETH 30 ML UNIT-DOSE CUP PO PRN (12:16)
[2023-10-09] MEDS ORDERED: LACTATED RINGERS SOLUTION 1,000 ML/1,000 ML INFUS.BAG IV SCH (12:30)
[2023-10-09 16:47] VITALS: BMI 34.9
[2023-10-09] MEDS: ATORVASTATIN CA 40 MG TABLET (FP) PO SCH (21:52)
[2023-10-09] MEDS: HEPARIN NA (PORCINE) 5,000 UNITS/ML 1ML VIAL SQ SCH (21:52)
[2023-10-09] MEDS: POLYETHYLENE GLYCOL (HEALTHYLAX) 3350 17 GM PACKET PO SCH (21:52)
[2023-10-10] MEDS: HEPARIN NA (PORCINE) 5,000 UNITS/ML 1ML VIAL SQ SCH ×3 (05:22→21:48)
[2023-10-10] MEDS: INSULIN ASPART SLIDING SCALE (NOVOLOG) 1 VIAL SQ SCH ×4 (06:04→22:29)
[2023-10-10] MEDS ORDERED: INSULIN (NOVOLOG) ASPART 100 UNITS/ML 10ML VIAL ONE (07:31)
[2023-10-10 09:09] LABS: BASO % 0.9 % (0-2.0); EOS % 5.1 % (0-4.5); HEMATOCRIT 45.8 % (35.4-49); HEMOGLOBIN 15.1 GM/dL (11.7-16.9); LYMPH % 48.7 % (8-40); MCHC 32.9 g/dl (32.0-35.9); MEAN CELL VOLUME 91.2 fl (80-96); MEAN PLT VOLUME 8.4 fl (7.5-11.1); MONO % 9.5 % (3.8-10.2); NEUT % 35.8 % (42.8-82.8); PLATELET COUNT 233 10^3/uL (134-434); RBC 5.02 M/mm3 (4.00-5.60); RDW 14.5 % (11.9-15.9)
[2023-10-10 09:16] LABS: POTASSIUM 4.3 mmol/L (3.5-5.1)
[2023-10-10 09:18] LABS: MAGNESIUM 2.7 mg/dL (1.8-2.4)
[2023-10-10 09:20] LABS: ALBUMIN 3.7 g/dl (3.4-5.0); BLOOD UREA NITROGEN 30.5 mg/dL (7-18)
[2023-10-10 09:21] LABS: CALCIUM 7.5 mg/dL (8.5-10.1)
[2023-10-10 09:22] LABS: CREATININE 1.5 mg/dL (0.55-1.3)
[2023-10-10 09:23] LABS: TOT PROT 7.6 g/dl (6.4-8.2)
[2023-10-10 09:25] LABS: BILIRUBIN,TOTAL 1.2 mg/dL (0.2-1)
[2023-10-10] MEDS: METOPROLOL TARTRATE 50 MG TABLET (FP) PO SCH ×2 (10:23→21:48)
[2023-10-10] MEDS: amLODIPine BESYLATE 5 MG TABLET (FP) PO SCH (10:23)
[2023-10-10] MEDS: ISOSORBIDE MONONITRATE 30 MG TAB.SR.24H (FP) PO SCH (10:23)
[2023-10-10] MEDS: POLYETHYLENE GLYCOL (HEALTHYLAX) 3350 17 GM PACKET PO SCH (10:24)
[2023-10-10] MEDS: PANTOPRAZOLE SODIUM 40 MG VIAL IVPUSH SCH (10:24)
[2023-10-10] MEDS: LACTATED RINGERS SOLUTION 1,000 ML/1,000 ML INFUS.BAG IV SCH (17:44)
[2023-10-10] MEDS: NICOTINE 14 MG/24 HOURS TOPICAL PATCH TD SCH (18:02)
[2023-10-10] MEDS: ATORVASTATIN CA 40 MG TABLET (FP) PO SCH (21:48)
[2023-10-11] MEDS: HEPARIN NA (PORCINE) 5,000 UNITS/ML 1ML VIAL SQ SCH ×3 (06:56→22:48)
[2023-10-11] MEDS: INSULIN ASPART SLIDING SCALE (NOVOLOG) 1 VIAL SQ SCH ×4 (06:57→22:49)
[2023-10-11 08:59] LABS: BASO % 0.7 % (0-2.0); EOS % 4.6 % (0-4.5); HEMATOCRIT 46.4 % (35.4-49); HEMOGLOBIN 15.3 GM/dL (11.7-16.9); LYMPH % 36.5 % (8-40); MCH 30.1 pg (25.7-33.7); MEAN CELL VOLUME 91.3 fl (80-96); MONO % 10.5 % (3.8-10.2); NEUT % 47.7 % (42.8-82.8); PLATELET COUNT 208 10^3/uL (134-434); RBC 5.08 M/mm3 (4.00-5.60); RDW 14.3 % (11.9-15.9); WHITE BLOOD COUNT 4.9 K/mm3 (4.0-10.0)
[2023-10-11 09:39] LABS: POTASSIUM 4.3 mmol/L (3.5-5.1)
[2023-10-11] MEDS ORDERED: MAG HYDROX/AL HYDROX/SIMETH 30 ML UNIT-DOSE CUP PO ONE (10:00)
[2023-10-11 10:17] LABS: ALBUMIN 3.7 g/dl (3.4-5.0); CALCIUM 7.4 mg/dL (8.5-10.1)
[2023-10-11 10:18] LABS: BLOOD UREA NITROGEN 25.1 mg/dL (7-18); MAGNESIUM 2.4 mg/dL (1.8-2.4)
[2023-10-11 10:19] LABS: CREATININE 1.5 mg/dL (0.55-1.3)
[2023-10-11 10:21] LABS: TOT PROT 7.9 g/dl (6.4-8.2)
[2023-10-11] MEDS: PANTOPRAZOLE 40 MG TABLET PO SCH (10:24)
[2023-10-11] MEDS: METOPROLOL TARTRATE 50 MG TABLET (FP) PO SCH ×2 (10:25→22:48)
[2023-10-11] MEDS: ISOSORBIDE MONONITRATE 30 MG TAB.SR.24H (FP) PO SCH (10:25)
[2023-10-11] MEDS: NICOTINE 14 MG/24 HOURS TOPICAL PATCH TD SCH (10:25)
[2023-10-11] MEDS: amLODIPine BESYLATE 5 MG TABLET (FP) PO SCH (10:25)
[2023-10-11] MEDS: LACTATED RINGERS SOLUTION 1,000 ML/1,000 ML INFUS.BAG IV SCH (13:01)
[2023-10-11] MEDS: ACETAMINOPHEN 325 MG TABLET (FP) PO PRN (14:14)
[2023-10-11 20:48] LABS: INR 1.03 (0.83-1.09); PROTHROMBIN TIME (PATIENT) 11.9 SEC (9.7-13.0)
[2023-10-11 20:51] LABS: ACTIVATED PTT 32.6 SECONDS (25.2-36.5)
[2023-10-11] MEDS: ATORVASTATIN CA 40 MG TABLET (FP) PO SCH (22:49)
[2023-10-12] MEDS: ACETAMINOPHEN 325 MG TABLET (FP) PO PRN ×2 (01:01→09:34)
[2023-10-12] MEDS: HEPARIN NA (PORCINE) 5,000 UNITS/ML 1ML VIAL SQ SCH ×3 (06:26→21:57)
[2023-10-12] MEDS: INSULIN ASPART SLIDING SCALE (NOVOLOG) 1 VIAL SQ SCH ×4 (06:27→22:05)
[2023-10-12 08:34] LABS: BASO % 0.5 % (0-2.0); EOS % 3.9 % (0-4.5); HEMATOCRIT 46.8 % (35.4-49); HEMOGLOBIN 15.8 GM/dL (11.7-16.9); LYMPH % 28.7 % (8-40); MCH 30.3 pg (25.7-33.7); MCHC 33.9 g/dl (32.0-35.9); MEAN CELL VOLUME 89.6 fl (80-96); MEAN PLT VOLUME 7.9 fl (7.5-11.1); MONO % 11.4 % (3.8-10.2); NEUT % 55.5 % (42.8-82.8); PLATELET COUNT 230 10^3/uL (134-434); RBC 5.22 M/mm3 (4.00-5.60); RDW 14.5 % (11.9-15.9); WHITE BLOOD COUNT 5.7 K/mm3 (4.0-10.0)
[2023-10-12 09:11] LABS: POTASSIUM 4.1 mmol/L (3.5-5.1)
[2023-10-12 09:20] LABS: ALBUMIN 3.8 g/dl (3.4-5.0); BLOOD UREA NITROGEN 20.8 mg/dL (7-18); CREATININE 1.5 mg/dL (0.55-1.3); MAGNESIUM 2.2 mg/dL (1.8-2.4)
[2023-10-12 09:21] LABS: CALCIUM 7.9 mg/dL (8.5-10.1); TOT PROT 8.2 g/dl (6.4-8.2)
[2023-10-12] MEDS: amLODIPine BESYLATE 5 MG TABLET (FP) PO SCH (09:34)
[2023-10-12] MEDS: PANTOPRAZOLE 40 MG TABLET PO SCH (09:34)
[2023-10-12] MEDS: METOPROLOL TARTRATE 50 MG TABLET (FP) PO SCH ×2 (09:34→21:57)
[2023-10-12] MEDS: ISOSORBIDE MONONITRATE 30 MG TAB.SR.24H (FP) PO SCH (09:34)
[2023-10-12] MEDS: POLYETHYLENE GLYCOL (HEALTHYLAX) 3350 17 GM PACKET PO SCH (09:36)
[2023-10-12] MEDS: NICOTINE 14 MG/24 HOURS TOPICAL PATCH TD SCH (09:36)
[2023-10-12] MEDS: METHYL SALICYLATE/MENTHOL OINT 30 GM TUBE TP SCH ×2 (10:34→21:57)
[2023-10-12] MEDS ORDERED: ACETAMINOPHEN 325 MG TABLET (FP) PO PRN (14:57)
[2023-10-12] MEDS: ATORVASTATIN CA 40 MG TABLET (FP) PO SCH (21:57)
[2023-10-12] MEDS: LACTATED RINGERS SOLUTION 1,000 ML/1,000 ML INFUS.BAG IV SCH (22:06)
[2023-10-13] MEDS: HEPARIN NA (PORCINE) 5,000 UNITS/ML 1ML VIAL SQ SCH ×3 (05:00→22:02)
[2023-10-13] MEDS: INSULIN ASPART SLIDING SCALE (NOVOLOG) 1 VIAL SQ SCH ×4 (06:25→22:02)
[2023-10-13] MEDS: amLODIPine BESYLATE 5 MG TABLET (FP) PO SCH (10:08)
[2023-10-13] MEDS: LACTATED RINGERS SOLUTION 1,000 ML/1,000 ML INFUS.BAG IV SCH (10:08)
[2023-10-13] MEDS: POLYETHYLENE GLYCOL (HEALTHYLAX) 3350 17 GM PACKET PO SCH (10:08)
[2023-10-13] MEDS: ISOSORBIDE MONONITRATE 30 MG TAB.SR.24H (FP) PO SCH (10:08)
[2023-10-13] MEDS: PANTOPRAZOLE 40 MG TABLET PO SCH (10:08)
[2023-10-13] MEDS: METOPROLOL TARTRATE 50 MG TABLET (FP) PO SCH ×2 (10:09→22:02)
[2023-10-13] MEDS: NICOTINE 14 MG/24 HOURS TOPICAL PATCH TD SCH (10:09)
[2023-10-13] MEDS: METHYL SALICYLATE/MENTHOL OINT 30 GM TUBE TP SCH ×2 (10:14→22:01)
[2023-10-13] MEDS: ATORVASTATIN CA 40 MG TABLET (FP) PO SCH (22:02)
[2023-10-14] MEDS: HEPARIN NA (PORCINE) 5,000 UNITS/ML 1ML VIAL SQ SCH ×3 (05:27→22:21)
[2023-10-14] MEDS: INSULIN ASPART SLIDING SCALE (NOVOLOG) 1 VIAL SQ SCH ×4 (06:30→22:34)
[2023-10-14 07:53] LABS: POTASSIUM 4.5 mmol/L (3.5-5.1)
[2023-10-14 07:54] LABS: BLOOD UREA NITROGEN 21.9 mg/dL (7-18); CALCIUM 7.7 mg/dL (8.5-10.1)
[2023-10-14 07:57] LABS: CREATININE 1.5 mg/dL (0.55-1.3)
[2023-10-14 08:00] LABS: HEMATOCRIT 46.1 % (35.4-49); HEMOGLOBIN 15.7 GM/dL (11.7-16.9); MCH 30.8 pg (25.7-33.7); MEAN CELL VOLUME 90.5 fl (80-96); MEAN PLT VOLUME 8.2 fl (7.5-11.1); PLATELET COUNT 226 10^3/uL (134-434); RBC 5.09 M/mm3 (4.00-5.60); RDW 14.2 % (11.9-15.9); WHITE BLOOD COUNT 5.1 K/mm3 (4.0-10.0)
[2023-10-14] MEDS ORDERED: KETOROLAC TROMETHAMINE 15 MG/ML VIAL IVPUSH SCH (08:15)
[2023-10-14] MEDS: METOPROLOL TARTRATE 50 MG TABLET (FP) PO SCH ×2 (11:10→22:22)
[2023-10-14] MEDS: POLYETHYLENE GLYCOL (HEALTHYLAX) 3350 17 GM PACKET PO SCH (11:10)
[2023-10-14] MEDS: ISOSORBIDE MONONITRATE 30 MG TAB.SR.24H (FP) PO SCH (11:10)
[2023-10-14] MEDS: amLODIPine BESYLATE 5 MG TABLET (FP) PO SCH (11:10)
[2023-10-14] MEDS: KETOROLAC TROMETHAMINE 15 MG/ML VIAL IVPUSH SCH ×3 (11:10→22:22)
[2023-10-14] MEDS: NICOTINE 14 MG/24 HOURS TOPICAL PATCH TD SCH (11:13)
[2023-10-14] MEDS: METHYL SALICYLATE/MENTHOL OINT 30 GM TUBE TP SCH ×2 (11:17→22:22)
[2023-10-14] MEDS: PANTOPRAZOLE 40 MG TABLET PO SCH (11:19)
[2023-10-14] MEDS: traMADol HCL 50 MG TABLET PO PRN (22:08)
[2023-10-14] MEDS: ATORVASTATIN CA 40 MG TABLET (FP) PO SCH (22:21)
[2023-10-15] MEDS: HEPARIN NA (PORCINE) 5,000 UNITS/ML 1ML VIAL SQ SCH ×3 (06:16→21:30)
[2023-10-15] MEDS: KETOROLAC TROMETHAMINE 15 MG/ML VIAL IVPUSH SCH ×2 (06:16→10:31)
[2023-10-15] MEDS: traMADol HCL 50 MG TABLET PO PRN (06:17)
[2023-10-15] MEDS: INSULIN ASPART SLIDING SCALE (NOVOLOG) 1 VIAL SQ SCH ×4 (06:18→21:52)
[2023-10-15 08:42] LABS: BASO % 0.9 % (0-2.0); EOS % 5.9 % (0-4.5); HEMATOCRIT 44.9 % (35.4-49); HEMOGLOBIN 15.4 GM/dL (11.7-16.9); LYMPH % 41.3 % (8-40); MCH 30.8 pg (25.7-33.7); MCHC 34.4 g/dl (32.0-35.9); MEAN CELL VOLUME 89.5 fl (80-96); MEAN PLT VOLUME 8.1 fl (7.5-11.1); MONO % 12.2 % (3.8-10.2); NEUT % 39.7 % (42.8-82.8); PLATELET COUNT 227 10^3/uL (134-434); RBC 5.01 M/mm3 (4.00-5.60); RDW 14.6 % (11.9-15.9); WHITE BLOOD COUNT 4.7 K/mm3 (4.0-10.0)
[2023-10-15 08:58] LABS: POTASSIUM 4.5 mmol/L (3.5-5.1)
[2023-10-15 09:03] LABS: ALBUMIN 3.6 g/dl (3.4-5.0); BLOOD UREA NITROGEN 28.5 mg/dL (7-18); CALCIUM 7.6 mg/dL (8.5-10.1); MAGNESIUM 2.1 mg/dL (1.8-2.4)
[2023-10-15 09:06] LABS: PHOSPHOROUS 4.9 mg/dL (2.5-4.9)
[2023-10-15 09:07] LABS: CREATININE 1.7 mg/dL (0.55-1.3)
[2023-10-15 09:08] LABS: BILIRUBIN,TOTAL 0.9 mg/dL (0.2-1); TOT PROT 7.9 g/dl (6.4-8.2)
[2023-10-15] MEDS: POLYETHYLENE GLYCOL (HEALTHYLAX) 3350 17 GM PACKET PO SCH (10:30)
[2023-10-15] MEDS: ISOSORBIDE MONONITRATE 30 MG TAB.SR.24H (FP) PO SCH (10:31)
[2023-10-15] MEDS: NICOTINE 14 MG/24 HOURS TOPICAL PATCH TD SCH (10:31)
[2023-10-15] MEDS: METHYL SALICYLATE/MENTHOL OINT 30 GM TUBE TP SCH ×2 (10:31→21:51)
[2023-10-15] MEDS: amLODIPine BESYLATE 5 MG TABLET (FP) PO SCH (10:31)
[2023-10-15] MEDS: PANTOPRAZOLE 40 MG TABLET PO SCH (10:31)
[2023-10-15] MEDS: METOPROLOL TARTRATE 50 MG TABLET (FP) PO SCH ×2 (10:31→21:30)
[2023-10-15] MEDS: CALCIUM (OYSTER SHELL) 500 MG TABLET (FP) PO SCH ×2 (10:31→21:30)
[2023-10-15] MEDS: ATORVASTATIN CA 40 MG TABLET (FP) PO SCH (21:30)
[2023-10-16] MEDS: INSULIN ASPART SLIDING SCALE (NOVOLOG) 1 VIAL SQ SCH ×4 (06:41→22:33)
[2023-10-16] MEDS: HEPARIN NA (PORCINE) 5,000 UNITS/ML 1ML VIAL SQ SCH ×3 (06:41→22:33)
[2023-10-16 08:20] LABS: POTASSIUM 4.9 mmol/L (3.5-5.1)
[2023-10-16 08:22] LABS: CALCIUM 7.7 mg/dL (8.5-10.1)
[2023-10-16 08:23] LABS: ALBUMIN 3.6 g/dl (3.4-5.0); MAGNESIUM 2.2 mg/dL (1.8-2.4)
[2023-10-16 08:26] LABS: CREATININE 1.5 mg/dL (0.55-1.3)
[2023-10-16 08:27] LABS: BILIRUBIN,TOTAL 0.8 mg/dL (0.2-1)
[2023-10-16 08:28] LABS: TOT PROT 7.7 g/dl (6.4-8.2)
[2023-10-16 08:32] LABS: HEMATOCRIT 43.4 % (35.4-49); HEMOGLOBIN 15.2 GM/dL (11.7-16.9); MCH 31.2 pg (25.7-33.7); MCHC 34.9 g/dl (32.0-35.9); MEAN CELL VOLUME 89.3 fl (80-96); MEAN PLT VOLUME 8.5 fl (7.5-11.1); PLATELET COUNT 238 10^3/uL (134-434); RBC 4.86 M/mm3 (4.00-5.60); RDW 14.3 % (11.9-15.9); WHITE BLOOD COUNT 4.5 K/mm3 (4.0-10.0)
[2023-10-16] MEDS: amLODIPine BESYLATE 5 MG TABLET (FP) PO SCH (09:05)
[2023-10-16] MEDS: METOPROLOL TARTRATE 50 MG TABLET (FP) PO SCH ×2 (09:05→22:32)
[2023-10-16] MEDS: NICOTINE 14 MG/24 HOURS TOPICAL PATCH TD SCH (09:05)
[2023-10-16] MEDS: POLYETHYLENE GLYCOL (HEALTHYLAX) 3350 17 GM PACKET PO SCH (09:05)
[2023-10-16] MEDS: PANTOPRAZOLE 40 MG TABLET PO SCH (09:06)
[2023-10-16] MEDS: ISOSORBIDE MONONITRATE 30 MG TAB.SR.24H (FP) PO SCH (09:06)
[2023-10-16] MEDS: METHYL SALICYLATE/MENTHOL OINT 30 GM TUBE TP SCH ×2 (09:06→22:39)
[2023-10-16] MEDS: CALCIUM (OYSTER SHELL) 500 MG TABLET (FP) PO SCH ×2 (09:06→22:33)
[2023-10-16] MEDS ORDERED: INSULIN (NOVOLOG) ASPART 100 UNITS/ML 10ML VIAL ONE ×2 (10:29→21:05)
[2023-10-16] MEDS: predniSONE 20 MG TABLET (UD) PO SCH (10:38)
[2023-10-16] MEDS: ATORVASTATIN CA 40 MG TABLET (FP) PO SCH (22:32)
[2023-10-17] MEDS: HEPARIN NA (PORCINE) 5,000 UNITS/ML 1ML VIAL SQ SCH ×2 (06:09→13:24)
[2023-10-17] MEDS: INSULIN ASPART SLIDING SCALE (NOVOLOG) 1 VIAL SQ SCH ×3 (06:10→17:51)
[2023-10-17] MEDS: METHYL SALICYLATE/MENTHOL OINT 30 GM TUBE TP SCH (09:01)
[2023-10-17] MEDS: METOPROLOL TARTRATE 50 MG TABLET (FP) PO SCH (09:02)
[2023-10-17] MEDS: amLODIPine BESYLATE 5 MG TABLET (FP) PO SCH (09:02)
[2023-10-17] MEDS: predniSONE 20 MG TABLET (UD) PO SCH (09:02)
[2023-10-17] MEDS: ISOSORBIDE MONONITRATE 30 MG TAB.SR.24H (FP) PO SCH (09:02)
[2023-10-17] MEDS: CALCIUM (OYSTER SHELL) 500 MG TABLET (FP) PO SCH (09:02)
[2023-10-17] MEDS: NICOTINE 14 MG/24 HOURS TOPICAL PATCH TD SCH (09:02)
[2023-10-17] MEDS: PANTOPRAZOLE 40 MG TABLET PO SCH (09:02)
[2023-10-17] MEDS: POLYETHYLENE GLYCOL (HEALTHYLAX) 3350 17 GM PACKET PO SCH (09:11)
[2023-10-17 09:55] LABS: HEMATOCRIT 45.4 % (35.4-49); MCH 29.8 pg (25.7-33.7); MEAN CELL VOLUME 90.3 fl (80-96); MEAN PLT VOLUME 8.3 fl (7.5-11.1); PLATELET COUNT 260 10^3/uL (134-434); RBC 5.02 M/mm3 (4.00-5.60); RDW 14.1 % (11.9-15.9); WHITE BLOOD COUNT 6.2 K/mm3 (4.0-10.0)
[2023-10-17] MEDS ORDERED: INSULIN (NOVOLOG) ASPART 100 UNITS/ML 10ML VIAL ONE (10:09)
[2023-10-17 10:13] LABS: POTASSIUM 4.5 mmol/L (3.5-5.1)
[2023-10-17 10:47] LABS: ALBUMIN 3.8 g/dl (3.4-5.0); CALCIUM 7.9 mg/dL (8.5-10.1)
[2023-10-17 10:48] LABS: BLOOD UREA NITROGEN 29.1 mg/dL (7-18); MAGNESIUM 2.4 mg/dL (1.8-2.4)
[2023-10-17 10:50] LABS: CREATININE 1.6 mg/dL (0.55-1.3)
[2023-10-17 10:52] LABS: BILIRUBIN,TOTAL 0.8 mg/dL (0.2-1); TOT PROT 7.8 g/dl (6.4-8.2)
[2023-10-17 13:57] VITALS: BP 129/73; PULSE 72; RESP 20; TEMP 98.8
== END 2023-10-17 18:45 | disposition home or self-care (01) | DRG 282 ==
LOC: JER 17:14 → JERBED 22:13 → OBSVTOIN 22:59 → J7W 10-09 17:17
PROVIDERS: ADMIT Internal Medicine; ATTEND Nurse Practitioner Acute Care
DX: K85.30 Drug induced acute pancreatitis without necrosis or infection (principal); E78.5 Hyperlipidemia, unspecified; I25.10 Atherosclerotic heart disease of native coronary artery without angina pectoris; Z95.1 Presence of aortocoronary bypass graft; E66.9 Obesity, unspecified; Z68.34 Body mass index [BMI] 34.0-34.9, adult; F17.210 Nicotine dependence, cigarettes, uncomplicated; W01.0XXA Fall on same level from slipping, tripping and stumbling without subsequent striking against object, initial encounter; Y93.01 Activity, walking, marching and hiking; Y92.238 Other place in hospital as the place of occurrence of the external cause; Y99.8 Other external cause status; M25.562 Pain in left knee; T50.995A Adverse effect of other drugs, medicaments and biological substances, initial encounter; E11.65 Type 2 diabetes mellitus with hyperglycemia; M17.12 Unilateral primary osteoarthritis, left knee; Z79.84 Long term (current) use of oral hypoglycemic drugs; I11.0 Hypertensive heart disease with heart failure; I50.32 Chronic diastolic (congestive) heart failure
CPT/HCPCS: 0241U-QW; 36415; 71045-TC-FY; 73562-TC-LT-FY; 73721-LT-TC; 74018-TC-FY; 74176-TC; 80048; 80053; 80061; 82150; 82962; 83036; 83605; 83690; 83735; 83880; 84100; 84484; 85025; 85027; 85610; 85730; 86140; 93005; 93010; 97116-GP; 97161-GP; 99285-25; G0378; J0131; J1644

== ENCOUNTER 2023-12-31 13:53 | Observation (INO) | payer OTHER ==
[2023-12-31 14:07] VITALS: BMI 33.7
[2023-12-31 14:59] LABS: EOS % 5.8 % (0-4.5); HEMATOCRIT 42.7 % (35.4-49); HEMOGLOBIN 14.2 GM/dL (11.7-16.9); LYMPH % 30.6 % (8-40); MCH 30.4 pg (25.7-33.7); MCHC 33.3 g/dl (32.0-35.9); MEAN CELL VOLUME 91.2 fl (80-96); MONO % 12.3 % (3.8-10.2); NEUT % 50.3 % (42.8-82.8); PLATELET COUNT 218 10^3/uL (134-434); RBC 4.68 M/mm3 (4.00-5.60); RDW 15.3 % (11.9-15.9); WHITE BLOOD COUNT 6.5 K/mm3 (4.0-10.0)
[2023-12-31 15:12] LABS: ACTIVATED PTT 31.9 SECONDS (25.2-36.5)
[2023-12-31 15:16] LABS: BLOOD UREA NITROGEN 34.8 mg/dL (7-18); CALCIUM 7.1 mg/dL (8.5-10.1)
[2023-12-31 15:17] LABS: ALBUMIN 3.8 g/dl (3.4-5.0)
[2023-12-31 15:20] LABS: CREATININE 1.9 mg/dL (0.55-1.3)
[2023-12-31 15:21] LABS: BILIRUBIN,TOTAL 0.8 mg/dL (0.2-1); TOT PROT 7.7 g/dl (6.4-8.2)
[2023-12-31] MEDS ORDERED: ASPIRIN 81 MG CHEWABLE TABLETS ONE (15:23)
[2023-12-31] MEDS: ASPIRIN 81 MG CHEWABLE TABLETS PO ONE (15:24)
[2023-12-31 15:26] LABS: INR 1.09 (0.83-1.09); PROTHROMBIN TIME (PATIENT) 12.6 SEC (9.7-13.0)
[2023-12-31] MEDS ORDERED: FAMOTIDINE 20 MG/50 ML IVPB 20 MG/50 ML MG IVPB ONE (16:13)
[2023-12-31] MEDS ORDERED: MAG HYDROX/AL HYDROX/SIMETH 30 ML UNIT-DOSE CUP ONE (16:13)
[2023-12-31] MEDS: MAG HYDROX/AL HYDROX/SIMETH 30 ML UNIT-DOSE CUP PO ONE (16:20)
[2023-12-31] MEDS: FAMOTIDINE 20 MG/50 ML IVPB 20 MG/50 ML MG IVPB ONE (16:20)
[2023-12-31] MEDS ORDERED: DOCUSATE SODIUM 100 MG CAPSULE (FP) PO PRN (20:10)
[2023-12-31] MEDS ORDERED: ACETAMINOPHEN 1000 MG/100 ML BAG IVPB PRN (20:14)
[2023-12-31] MEDS: INSULIN ASPART SLIDING SCALE (NOVOLOG) 1 VIAL SQ SCH (22:33)
[2023-12-31] MEDS: SODIUM CHLORIDE 0.45% 1,000 ML IV SCH (22:33)
[2024-01-01 06:03] VITALS: TEMP 98.2
[2024-01-01 06:48] LABS: BASO % 0.9 % (0-2.0); EOS % 5.6 % (0-4.5); HEMATOCRIT 43.5 % (35.4-49); HEMOGLOBIN 14.3 GM/dL (11.7-16.9); LYMPH % 33.9 % (8-40); MCH 30.4 pg (25.7-33.7); MEAN CELL VOLUME 92.2 fl (80-96); MEAN PLT VOLUME 8.1 fl (7.5-11.1); MONO % 11.2 % (3.8-10.2); NEUT % 48.4 % (42.8-82.8); PLATELET COUNT 182 10^3/uL (134-434); RBC 4.72 M/mm3 (4.00-5.60); RDW 14.7 % (11.9-15.9); WHITE BLOOD COUNT 6.5 K/mm3 (4.0-10.0)
[2024-01-01 06:58] LABS: CHLORIDE 107 mmol/L (98-107); POTASSIUM 4.2 mmol/L (3.5-5.1); SODIUM 138 mmol/L (136-145)
[2024-01-01 07:00] LABS: ANION GAP 7 mmol/L (4-13); CO2 24 mmol/L (21-32); GLUCOSE,RANDOM 95 mg/dL (74-106); MAGNESIUM 2.2 mg/dL (1.8-2.4)
[2024-01-01 07:03] LABS: CREATININE 1.6 mg/dL (0.55-1.3); PHOSPHOROUS 5.1 mg/dL (2.5-4.9)
[2024-01-01 07:09] LABS: CALCIUM 6.9 mg/dL (8.5-10.1)
[2024-01-01] MEDS ORDERED: LOSARTAN POTASSIUM 50 MG TABLET ONE (09:49)
[2024-01-01] MEDS ORDERED: ASPIRIN 81 MG CHEWABLE TABLETS ONE (09:49)
[2024-01-01] MEDS ORDERED: POLYETHYLENE GLYCOL (HEALTHYLAX) 3350 17 GM PACKET ONE (09:50)
[2024-01-01] MEDS ORDERED: CLOPIDOGREL BISULFATE 75 MG TABLET (FP) ONE (09:51)
[2024-01-01] MEDS ORDERED: NICOTINE 14 MG/24 HOURS TOPICAL PATCH TD ONE (09:51)
[2024-01-01] MEDS ORDERED: NITROGLYCERIN SUBLINGUAL 1/150 0.4 MG TAB ONE ×2 (09:51→11:36)
[2024-01-01] MEDS ORDERED: metoPROLOL SUCCINATE 25 MG TAB.SR.24H (FP) PO ONE (09:51)
[2024-01-01] MEDS: metoPROLOL SUCCINATE 25 MG TAB.SR.24H (FP) PO SCH (09:55)
[2024-01-01] MEDS: POLYETHYLENE GLYCOL (HEALTHYLAX) 3350 17 GM PACKET PO SCH (09:55)
[2024-01-01] MEDS: CLOPIDOGREL BISULFATE 75 MG TABLET (FP) PO SCH (09:55)
[2024-01-01] MEDS: ASPIRIN COATED 81 MG TABLET.EC PO SCH (09:55)
[2024-01-01] MEDS: LOSARTAN POTASSIUM 50 MG TABLET PO SCH (09:55)
[2024-01-01] MEDS: NICOTINE 14 MG/24 HOURS TOPICAL PATCH TD SCH (09:55)
[2024-01-01] MEDS: NITROGLYCERIN SUBLINGUAL 1/150 0.4 MG TAB SL PRN (11:40)
[2024-01-01] MEDS: CALCIUM 250MG/VIT-D 125 UNITS 1 COMBO TABLET PO SCH (13:04)
[2024-01-01] MEDS: NITROGLYCERIN 0.4 MG/HOUR TD PATCH TD SCH (13:04)
[2024-01-01] MEDS ORDERED: ACETAMINOPHEN 325 MG TABLET (FP) PO PRN (20:10)
[2024-01-01] MEDS: morphine CARPU-JECT 2 MG/1 ML DISP.SYRIN IVPUSH ONE (20:39)
[2024-01-01 21:07] VITALS: BP 137/66; PULSE 79; RESP 19
[2024-01-01] MEDS ORDERED: ATORVASTATIN CA 40 MG TABLET (FP) ONE (21:38)
[2024-01-01] MEDS: ATORVASTATIN CA 40 MG TABLET (FP) PO SCH (21:49)
== END 2024-01-01 21:30 | disposition short-term general hospital (02) ==
LOC: JER 13:53 → JERBED 20:03
PROVIDERS: ADMIT Internal Medicine; ATTEND Family Medicine
PROC: 3E033GC Introduction of Other Therapeutic Substance into Peripheral Vein, Percutaneous Approach (ICD-10-PCS; principal; 2023-12-31)
PROC: 3E033NZ Introduction of Analgesics, Hypnotics, Sedatives into Peripheral Vein, Percutaneous Approach (ICD-10-PCS; 2023-12-31)
PROC: 3E0337Z Introduction of Electrolytic and Water Balance Substance into Peripheral Vein, Percutaneous Approach (ICD-10-PCS; 2023-12-31)
DX: I25.10 Atherosclerotic heart disease of native coronary artery without angina pectoris (principal); R07.2 Precordial pain; I11.9 Hypertensive heart disease without heart failure; Z95.1 Presence of aortocoronary bypass graft; E11.9 Type 2 diabetes mellitus without complications; K80.20 Calculus of gallbladder without cholecystitis without obstruction; E78.5 Hyperlipidemia, unspecified; I45.10 Unspecified right bundle-branch block; Z95.5 Presence of coronary angioplasty implant and graft; G89.29 Other chronic pain; F17.210 Nicotine dependence, cigarettes, uncomplicated
CPT/HCPCS: 36415; 71045-TC-FY; 80048; 80053; 82962; 83735; 83880; 84100; 84484; 85025; 85610; 85730; 86850; 86900; 86901; 93005; 93010; 93971-TC; 96361; 96365; 96375; 99285-25; G0378

== ENCOUNTER 2024-05-17 11:35 | Observation (INO) | payer OTHER ==
[2024-05-17 12:33] LABS: BASO % 0.6 % (0-2.0); EOS % 8.5 % (0-4.5); HEMATOCRIT 33.6 % (35.4-49); HEMOGLOBIN 11.5 GM/dL (11.7-16.9); LYMPH % 32.7 % (8-40); MCH 29.6 pg (25.7-33.7); MEAN CELL VOLUME 86.9 fl (80-96); MEAN PLT VOLUME 7.2 fl (7.5-11.1); MONO % 8.9 % (3.8-10.2); NEUT % 49.3 % (42.8-82.8); PLATELET COUNT 257 10^3/uL (134-434); RBC 3.87 M/mm3 (4.00-5.60); RDW 17.6 % (11.9-15.9)
[2024-05-17 12:40] LABS: INR 1.03 (0.83-1.09); PROTHROMBIN TIME (PATIENT) 11.6 SEC (9.7-13.0)
[2024-05-17 12:43] LABS: ACTIVATED PTT 30.1 SECONDS (25.2-36.5)
[2024-05-17 12:59] LABS: CHLORIDE 110 mmol/L (98-107); POTASSIUM 4.4 mmol/L (3.5-5.1); SODIUM 139 mmol/L (136-145)
[2024-05-17 13:02] LABS: ALBUMIN 3.6 g/dl (3.4-5.0); ANION GAP 8 mmol/L (4-13); BLOOD UREA NITROGEN 35.9 mg/dL (7-18); CO2 21 mmol/L (21-32); GLUCOSE,RANDOM 140 mg/dL (74-106)
[2024-05-17 13:04] LABS: SGPT/ALT 22 U/L (13-61)
[2024-05-17 13:05] LABS: CREATININE 2.7 mg/dL (0.55-1.3); SGOT/AST 21 U/L (15-37)
[2024-05-17 13:07] LABS: BILIRUBIN,TOTAL 0.6 mg/dL (0.2-1); TOT PROT 7.1 g/dl (6.4-8.2)
[2024-05-17 13:08] LABS: ALK PHOS 84 U/L (45-117)
[2024-05-17 13:11] LABS: CALCIUM 6.2 mg/dL (8.5-10.1)
[2024-05-17] MEDS: SODIUM CHLORIDE 0.9% 500 ML INFUS.BAG IV ONE (15:33)
[2024-05-17 17:21] LABS: PH,URINE 5.5 (5.0-8.0); URINE APPEARANCE CLEAR; URINE BILIRUBIN NEGATIVE (NEGATIVE); URINE COLOR YELLOW; URINE GLUCOSE (UA) NEGATIVE (NEGATIVE); URINE KETONE NEGATIVE (NEGATIVE); URINE LEUK ESTERASE NEGATIVE (NEGATIVE); URINE NITRITE NEGATIVE (NEGATIVE); URINE PROTEIN NEGATIVE (NEGATIVE); URINE UROBILINOGEN 0.2 mg/dL (0.2-1.0)
[2024-05-17 17:59] VITALS: BMI 36.7
[2024-05-17] MEDS ORDERED: CALCIUM GLUCONATE 10% - 1,000 MG/10 ML VIAL IVPB SCH (20:00)
[2024-05-17] MEDS: CALCIUM GLUCONATE 10% - 1,000 MG/10 ML VIAL IVPB ONE (20:03)
[2024-05-17 20:53] LABS: MAGNESIUM 1.6 mg/dL (1.8-2.4)
[2024-05-17 21:01] LABS: N-TERMINAL BNP 610.4 pg/ml (5-125)
[2024-05-17] MEDS: METOPROLOL TARTRATE 50 MG TABLET (FP) PO SCH (21:25)
[2024-05-17] MEDS: ATORVASTATIN CA 80 MG TABLET (FP) PO SCH (21:25)
[2024-05-18] MEDS: EMPAGLIFLOZIN (JARDIANCE) 10 MG TABLET PO SCH (06:10)
[2024-05-18 08:19] LABS: BASO % 0.8 % (0-2.0); EOS % 7.9 % (0-4.5); HEMATOCRIT 31.4 % (35.4-49); HEMOGLOBIN 10.7 GM/dL (11.7-16.9); LYMPH % 35.2 % (8-40); MCH 29.3 pg (25.7-33.7); MCHC 33.9 g/dl (32.0-35.9); MEAN CELL VOLUME 86.4 fl (80-96); MEAN PLT VOLUME 7.7 fl (7.5-11.1); MONO % 9.4 % (3.8-10.2); NEUT % 46.7 % (42.8-82.8); PLATELET COUNT 204 10^3/uL (134-434); RBC 3.64 M/mm3 (4.00-5.60); RDW 17.7 % (11.9-15.9); WHITE BLOOD COUNT 4.8 K/mm3 (4.0-10.0)
[2024-05-18 08:42] LABS: CHLORIDE 111 mmol/L (98-107); POTASSIUM 4.1 mmol/L (3.5-5.1); SODIUM 140 mmol/L (136-145)
[2024-05-18 08:51] LABS: ALBUMIN 3.5 g/dl (3.4-5.0)
[2024-05-18 08:53] LABS: ANION GAP 10 mmol/L (4-13); BLOOD UREA NITROGEN 37.1 mg/dL (7-18); CALCIUM 6.1 mg/dL (8.5-10.1); CO2 19 mmol/L (21-32); GLUCOSE,RANDOM 85 mg/dL (74-106); MAGNESIUM 1.5 mg/dL (1.8-2.4)
[2024-05-18 08:54] LABS: SGOT/AST 17 U/L (15-37); SGPT/ALT 19 U/L (13-61)
[2024-05-18 08:55] LABS: CREATININE 2.2 mg/dL (0.55-1.3); PHOSPHOROUS 4.7 mg/dL (2.5-4.9)
[2024-05-18 08:56] LABS: BILIRUBIN,TOTAL 0.9 mg/dL (0.2-1); TOT PROT 6.8 g/dl (6.4-8.2)
[2024-05-18 08:57] LABS: ALK PHOS 88 U/L (45-117)
[2024-05-18] MEDS: CLOPIDOGREL BISULFATE 75 MG TABLET (FP) PO SCH (09:43)
[2024-05-18] MEDS: NICOTINE 14 MG/24 HOURS TOPICAL PATCH TD SCH (09:43)
[2024-05-18] MEDS: ISOSORBIDE MONONITRATE 30 MG TAB.SR.24H (FP) PO SCH (09:43)
[2024-05-18] MEDS: LISINOPRIL 10 MG TABLET PO SCH (09:43)
[2024-05-18] MEDS: amLODIPine BESYLATE 5 MG TABLET (FP) PO SCH (09:43)
[2024-05-18] MEDS: ASPIRIN COATED 81 MG TABLET.EC PO SCH (09:43)
[2024-05-18] MEDS: ACETAMINOPHEN 500 MG TABLET (FP) PO PRN (10:11)
[2024-05-18] MEDS: CALCIUM GLUCONATE 10% - 1,000 MG/10 ML VIAL IVPB ONE (11:20)
[2024-05-18] MEDS: MAGNESIUM 2GM/50ML STERILE WATER IVPB IVPB ONE (12:40)
[2024-05-19 08:57] LABS: EOS % 8.7 % (0-4.5); HEMATOCRIT 32.3 % (35.4-49); HEMOGLOBIN 11.2 GM/dL (11.7-16.9); MCH 29.9 pg (25.7-33.7); MCHC 34.7 g/dl (32.0-35.9); MEAN CELL VOLUME 86.2 fl (80-96); MEAN PLT VOLUME 7.8 fl (7.5-11.1); MONO % 10.1 % (3.8-10.2); NEUT % 43.2 % (42.8-82.8); PLATELET COUNT 217 10^3/uL (134-434); RBC 3.74 M/mm3 (4.00-5.60); RDW 17.5 % (11.9-15.9)
[2024-05-19 09:24] VITALS: RESP 18
[2024-05-19 09:24] LABS: CHLORIDE 110 mmol/L (98-107); POTASSIUM 4.3 mmol/L (3.5-5.1); SODIUM 140 mmol/L (136-145)
[2024-05-19 09:28] LABS: ALBUMIN 3.5 g/dl (3.4-5.0); ANION GAP 9 mmol/L (4-13); BLOOD UREA NITROGEN 37.4 mg/dL (7-18); CO2 21 mmol/L (21-32); GLUCOSE,RANDOM 105 mg/dL (74-106)
[2024-05-19 09:31] LABS: CREATININE 2.2 mg/dL (0.55-1.3); SGOT/AST 18 U/L (15-37); SGPT/ALT 20 U/L (13-61)
[2024-05-19 09:33] LABS: BILIRUBIN,TOTAL 0.6 mg/dL (0.2-1); IRON SERUM 86 ug/dL (50-175); TOT PROT 7.1 g/dl (6.4-8.2)
[2024-05-19 09:35] LABS: ALK PHOS 80 U/L (45-117); TOTAL IRON BINDING CAPACITY 291 ug/dL (250-450)
[2024-05-19 09:39] LABS: CALCIUM 6.6 mg/dL (8.5-10.1)
[2024-05-19] MEDS: LISINOPRIL 5 MG TABLET PO SCH (12:12)
[2024-05-19] MEDS: amLODIPine BESYLATE 2.5 MG TABLET (FP) PO SCH (12:12)
[2024-05-19] MEDS: CALCIUM GLUCONATE 10% - 1,000 MG/10 ML VIAL IVPB ONE (15:57)
[2024-05-19] MEDS: CALCIUM CARBONATE 650 MG TABLET PO SCH (17:43)
[2024-05-20 09:43] VITALS: BP 126/69; PULSE 71; TEMP 97.7
[2024-05-20] MEDS: DULoxetine HCL 30 MG CAPSULE.DR PO SCH (10:13)
[2024-05-20] MEDS: CALCIUM GLUC IN NACL, ISO-OSM 1 GM/50 ML BAG IVPB ONE (10:55)
[2024-05-20] MEDS: CALCIUM GLUCONATE 10% - 1,000 MG/10 ML VIAL IVPB ONE (12:23)
== END 2024-05-20 15:51 | disposition home health service (06) ==
LOC: JER 11:35 → JERBED 16:03 → J7W 17:34
PROVIDERS: ADMIT Family Medicine; ATTEND Family Medicine
PROC: 3E0337Z Introduction of Electrolytic and Water Balance Substance into Peripheral Vein, Percutaneous Approach (ICD-10-PCS; principal; 2024-05-17)
DX: I73.9 Peripheral vascular disease, unspecified (principal); I25.10 Atherosclerotic heart disease of native coronary artery without angina pectoris; E11.9 Type 2 diabetes mellitus without complications; I10 Essential (primary) hypertension; N17.9 Acute kidney failure, unspecified; E83.51 Hypocalcemia; I50.9 Heart failure, unspecified; K44.9 Diaphragmatic hernia without obstruction or gangrene; Z90.49 Acquired absence of other specified parts of digestive tract; Z87.891 Personal history of nicotine dependence; K76.0 Fatty (change of) liver, not elsewhere classified; K85.30 Drug induced acute pancreatitis without necrosis or infection; M19.90 Unspecified osteoarthritis, unspecified site
CPT/HCPCS: 36415; 71045-TC-FY; 76775-TC; 80053; 81003; 82607; 82728; 82962; 83036; 83090; 83540; 83550; 83735; 83880; 84100; 84443; 85025; 85610; 85730; 86038; 86780; 87086; 93005; 93010; 93306-TC; 93925-TC; 93970-TC; 96374; 96375; 96376; 97116-GP; 97161-GP; 99285-25; G0378

== ENCOUNTER 2024-06-27 10:56 | Inpatient (IN) | payer OTHER ==
[2024-06-27 14:27] LABS: BASO % 0.9 % (0-2.0); HEMATOCRIT 33.6 % (35.4-49); HEMOGLOBIN 11.3 GM/dL (11.7-16.9); LYMPH % 36.6 % (8-40); MCH 29.9 pg (25.7-33.7); MCHC 33.7 g/dl (32.0-35.9); MEAN CELL VOLUME 88.7 fl (80-96); MEAN PLT VOLUME 7.5 fl (7.5-11.1); MONO % 9.5 % (3.8-10.2); PLATELET COUNT 202 10^3/uL (134-434); RBC 3.78 M/mm3 (4.00-5.60); RDW 15.1 % (11.9-15.9); WHITE BLOOD COUNT 5.5 K/mm3 (4.0-10.0)
[2024-06-27 14:39] LABS: INR 1.04 (0.83-1.09); PROTHROMBIN TIME (PATIENT) 11.9 SEC (9.7-13.0)
[2024-06-27 14:41] LABS: ACTIVATED PTT 32.8 SECONDS (25.2-36.5)
[2024-06-27 14:50] LABS: CHLORIDE 111 mmol/L (98-107); POTASSIUM 4.6 mmol/L (3.5-5.1); SODIUM 142 mmol/L (136-145)
[2024-06-27 14:52] LABS: ALBUMIN 3.6 g/dl (3.4-5.0); ANION GAP 7 mmol/L (4-13); BLOOD UREA NITROGEN 50.4 mg/dL (7-18); CO2 23 mmol/L (21-32); GLUCOSE,RANDOM 150 mg/dL (74-106)
[2024-06-27 14:55] LABS: CREATININE 2.6 mg/dL (0.55-1.3); SGOT/AST 11 U/L (15-37); SGPT/ALT 16 U/L (13-61)
[2024-06-27 14:57] LABS: BILIRUBIN,TOTAL 0.5 mg/dL (0.2-1); TOT PROT 7.1 g/dl (6.4-8.2)
[2024-06-27 14:58] LABS: ALK PHOS 77 U/L (45-117)
[2024-06-27 15:04] LABS: CALCIUM 6.8 mg/dL (8.5-10.1)
[2024-06-27] MEDS: SODIUM CHLORIDE 1,000 ML IV ONE (18:34)
[2024-06-27] MEDS: INSULIN ASPART SLIDING SCALE (NOVOLOG) 1 VIAL SQ SCH (21:33)
[2024-06-27] MEDS: DOCUSATE SODIUM 100 MG CAPSULE (FP) PO SCH (23:46)
[2024-06-27] MEDS: SODIUM CHLORIDE 0.45% 1,000 ML IV SCH (23:47)
[2024-06-27] MEDS: ACETAMINOPHEN 1000 MG/100 ML BAG IVPB SCH (23:47)
[2024-06-28] MEDS: ACETAMINOPHEN 1000 MG/100 ML BAG IVPB SCH (00:02)
[2024-06-28] MEDS: CALCIUM GLUCONATE IN NACL 1 GM/50 ML BAG IVPB ONE (01:42)
[2024-06-28] MEDS ORDERED: NITROGLYCERIN SUBLINGUAL 1/150 0.4 MG TAB SL PRN (04:08)
[2024-06-28] MEDS ORDERED: METHYL SALICYLATE/MENTHOL 30 GM TUBE TP PRN (04:08)
[2024-06-28] MEDS: GABAPENTIN 300 MG CAPSULE PO SCH (05:28)
[2024-06-28] MEDS: ISOSORBIDE MONONITRATE 30 MG TAB.SR.24H (FP) PO SCH (09:47)
[2024-06-28] MEDS: LOSARTAN POTASSIUM 50 MG TABLET PO SCH (09:48)
[2024-06-28] MEDS: RANOLAZINE E.R. 500 MG TABLET (FP) PO SCH (09:48)
[2024-06-28 09:58] LABS: BASO % 0.8 % (0-2.0); EOS % 6.9 % (0-4.5); HEMATOCRIT 34.4 % (35.4-49); HEMOGLOBIN 11.6 GM/dL (11.7-16.9); LYMPH % 42.8 % (8-40); MCHC 33.7 g/dl (32.0-35.9); MEAN PLT VOLUME 7.8 fl (7.5-11.1); MONO % 8.9 % (3.8-10.2); NEUT % 40.6 % (42.8-82.8); PLATELET COUNT 210 10^3/uL (134-434); RBC 3.87 M/mm3 (4.00-5.60); WHITE BLOOD COUNT 5.3 K/mm3 (4.0-10.0)
[2024-06-28 10:17] LABS: CHLORIDE 106 mmol/L (98-107); POTASSIUM 4.4 mmol/L (3.5-5.1); SODIUM 135 mmol/L (136-145)
[2024-06-28 10:20] LABS: ANION GAP 8 mmol/L (4-13); BLOOD UREA NITROGEN 39.4 mg/dL (7-18); CO2 21 mmol/L (21-32); GLUCOSE,RANDOM 76 mg/dL (74-106)
[2024-06-28 10:22] LABS: PHOSPHOROUS 5.9 mg/dL (2.5-4.9)
[2024-06-28 10:24] LABS: CREATININE 2.5 mg/dL (0.55-1.3)
[2024-06-28 10:27] LABS: CALCIUM 6.6 mg/dL (8.5-10.1)
[2024-06-28] MEDS: EMPAGLIFLOZIN (JARDIANCE) 10 MG TABLET PO SCH (11:22)
[2024-06-28 16:42] VITALS: BMI 36.0
[2024-06-28] MEDS: SEVELAMER CARBONATE 0.8 GM POWDER PACKET PO SCH (17:54)
[2024-06-28] MEDS: MINERAL OIL/PET HY-PHL TOPICAL OINTMENT 454 GM JAR TP SCH (17:54)
[2024-06-28 18:20] LABS: PH,URINE 5.5 (5.0-8.0); URINE APPEARANCE CLEAR; URINE BILIRUBIN NEGATIVE (NEGATIVE); URINE COLOR YELLOW; URINE GLUCOSE (UA) 2+ (NEGATIVE); URINE KETONE NEGATIVE (NEGATIVE); URINE LEUK ESTERASE NEGATIVE (NEGATIVE); URINE NITRITE NEGATIVE (NEGATIVE); URINE PROTEIN NEGATIVE (NEGATIVE); URINE UROBILINOGEN 0.2 mg/dL (0.2-1.0)
[2024-06-28] MEDS: ATORVASTATIN CA 80 MG TABLET (FP) PO SCH (21:31)
[2024-06-29] MEDS: oxyCODONE HCL 5 MG TABLET PO PRN (09:42)
[2024-06-29 11:11] LABS: BASO % 0.5 % (0-2.0); HEMATOCRIT 34.3 % (35.4-49); HEMOGLOBIN 11.5 GM/dL (11.7-16.9); LYMPH % 33.5 % (8-40); MCH 29.6 pg (25.7-33.7); MCHC 33.5 g/dl (32.0-35.9); MEAN CELL VOLUME 88.3 fl (80-96); MEAN PLT VOLUME 7.5 fl (7.5-11.1); PLATELET COUNT 202 10^3/uL (134-434); RBC 3.89 M/mm3 (4.00-5.60); RDW 15.4 % (11.9-15.9); WHITE BLOOD COUNT 4.7 K/mm3 (4.0-10.0)
[2024-06-29] MEDS: ASPIRIN 81 MG CHEWABLE TABLETS PO SCH (11:27)
[2024-06-29] MEDS: CLOPIDOGREL BISULFATE 75 MG TABLET (FP) PO SCH (11:27)
[2024-06-29 11:31] LABS: CHLORIDE 109 mmol/L (98-107); POTASSIUM 4.2 mmol/L (3.5-5.1); SODIUM 140 mmol/L (136-145)
[2024-06-29 11:35] LABS: ANION GAP 8 mmol/L (4-13); CO2 23 mmol/L (21-32); GLUCOSE,RANDOM 140 mg/dL (74-106); MAGNESIUM 2.1 mg/dL (1.8-2.4)
[2024-06-29 11:36] LABS: ALBUMIN 3.6 g/dl (3.4-5.0)
[2024-06-29 11:38] LABS: CALCIUM 6.9 mg/dL (8.5-10.1); CREATININE 2.6 mg/dL (0.55-1.3); SGOT/AST 11 U/L (15-37); SGPT/ALT 14 U/L (13-61)
[2024-06-29 11:40] LABS: BILIRUBIN,TOTAL 0.6 mg/dL (0.2-1); BLOOD UREA NITROGEN 42.8 mg/dL (7-18); TOT PROT 7.2 g/dl (6.4-8.2)
[2024-06-29 11:41] LABS: ALK PHOS 79 U/L (45-117)
[2024-06-29] MEDS: CALCIUM GLUCONATE IN NACL 1 GM/50 ML BAG IVPB ONE (18:54)
[2024-06-29] MEDS: CALCIUM CARBONATE 650 MG TABLET PO SCH (22:25)
[2024-06-30] MEDS: EMPAGLIFLOZIN (JARDIANCE) 10 MG TABLET PO SCH (06:26)
[2024-06-30] MEDS: POLYETHYLENE GLYCOL (HEALTHYLAX) 3350 17 GM PACKET PO PRN (09:48)
[2024-07-01 10:13] LABS: CHLORIDE 105 mmol/L (98-107); POTASSIUM 4.8 mmol/L (3.5-5.1); SODIUM 137 mmol/L (136-145)
[2024-07-01 10:16] LABS: ALBUMIN 3.7 g/dl (3.4-5.0); ANION GAP 8 mmol/L (4-13); BLOOD UREA NITROGEN 36.5 mg/dL (7-18); CALCIUM 6.8 mg/dL (8.5-10.1); CO2 24 mmol/L (21-32); GLUCOSE,RANDOM 100 mg/dL (74-106)
[2024-07-01 10:18] LABS: SGOT/AST 13 U/L (15-37); SGPT/ALT 16 U/L (13-61)
[2024-07-01 10:20] LABS: BILIRUBIN,TOTAL 0.7 mg/dL (0.2-1); CREATININE 2.5 mg/dL (0.55-1.3); TOT PROT 7.5 g/dl (6.4-8.2)
[2024-07-01 10:22] LABS: ALK PHOS 77 U/L (45-117)
[2024-07-01] MEDS: CALCIUM GLUCONATE IN NACL 1 GM/50 ML BAG IVPB ONE (15:31)
[2024-07-01] MEDS: LACTULOSE 20 GM/30 ML UDC (FOR ORAL USE ONLY) PO ONE (15:31)
[2024-07-02 11:00] LABS: POTASSIUM 4.8 mmol/L (3.5-5.1)
[2024-07-02 11:17] LABS: CALCIUM 7.9 mg/dL (8.5-10.1)
[2024-07-02 11:18] LABS: CREATININE 2.7 mg/dL (0.55-1.3)
[2024-07-02] MEDS: SODIUM CHLORIDE 0.45% 1,000 ML IV SCH (18:59)
[2024-07-02] MEDS ORDERED: INSULIN ASPART SLIDING SCALE (NOVOLOG) 1 VIAL SQ ONE (20:41)
[2024-07-03 10:30] LABS: POTASSIUM 4.8 mmol/L (3.5-5.1)
[2024-07-03 10:57] LABS: CALCIUM 7.2 mg/dL (8.5-10.1)
[2024-07-03 10:58] LABS: BLOOD UREA NITROGEN 47.1 mg/dL (7-18)
[2024-07-03 11:01] LABS: CREATININE 2.7 mg/dL (0.55-1.3)
[2024-07-03] MEDS ORDERED: INSULIN ASPART SLIDING SCALE (NOVOLOG) 1 VIAL SQ ONE (11:58)
[2024-07-03] MEDS: LACTULOSE 20 GM/30 ML UDC (FOR ORAL USE ONLY) PO ONE (15:38)
[2024-07-04] MEDS: CALCITRIOL 0.25 MCG CAPSULE (FP) PO SCH (16:59)
[2024-07-04] MEDS: ACETAMINOPHEN 325 MG TABLET (FP) PO PRN (20:54)
[2024-07-05] MEDS: VERICIGUAT 5 MG PO SCH (09:16)
[2024-07-06 09:16] LABS: BASO % 0.7 % (0-2.0); EOS % 8.2 % (0-4.5); HEMATOCRIT 34.6 % (35.4-49); HEMOGLOBIN 11.6 GM/dL (11.7-16.9); LYMPH % 41.7 % (8-40); MCH 29.8 pg (25.7-33.7); MCHC 33.6 g/dl (32.0-35.9); MEAN CELL VOLUME 88.7 fl (80-96); MEAN PLT VOLUME 8.2 fl (7.5-11.1); MONO % 9.4 % (3.8-10.2); PLATELET COUNT 205 10^3/uL (134-434); RDW 14.8 % (11.9-15.9); WHITE BLOOD COUNT 5.2 K/mm3 (4.0-10.0)
[2024-07-06 09:18] LABS: PROTHROMBIN TIME (PATIENT) 11.5 SEC (9.7-13.0)
[2024-07-06 09:21] LABS: ACTIVATED PTT 29.5 SECONDS (25.2-36.5)
[2024-07-06 09:54] LABS: ALBUMIN 3.8 g/dl (3.4-5.0); BLOOD UREA NITROGEN 49.3 mg/dL (7-18)
[2024-07-06 09:57] LABS: CREATININE 2.8 mg/dL (0.55-1.3)
[2024-07-06 09:58] LABS: BILIRUBIN,TOTAL 0.5 mg/dL (0.2-1); CALCIUM 7.4 mg/dL (8.5-10.1); TOT PROT 7.3 g/dl (6.4-8.2)
[2024-07-06] MEDS ORDERED: HEPARIN NA (PORCINE) 5,000 UNITS/ML 1ML VIAL ONE (11:54)
[2024-07-06] MEDS ORDERED: POVIDONE-IODINE OINTMENT 10% - 28.4 GM TUBE ONE (11:54)
[2024-07-06] MEDS ORDERED: REMIFENTANIL (ULTIVA) HCL 1 MG VIAL ONE (12:28)
[2024-07-06] MEDS ORDERED: NITROGLYCERIN 50 MG/10 ML VIAL IVPB ONE (12:28)
[2024-07-06] MEDS ORDERED: ETOMIDATE 20 MG/10 ML VIAL IVPUSH ONE (12:30)
[2024-07-06] MEDS ORDERED: ROCURONIUM BROMIDE 50 MG/5 ML SYRINGE ONE (12:31)
[2024-07-06] MEDS ORDERED: PROPOFOL 20 ML ONE (12:31)
[2024-07-06] MEDS ORDERED: MIDAZOLAM HCL 2 MG/2 ML SINGLE DOSE VIAL ONE (12:31)
[2024-07-06] MEDS: ceFAZolin SODIUM 1 GM VIAL IVPB ONE (13:30)
[2024-07-06] MEDS ORDERED: SUGAMMADEX SODIUM 200 MG/2 ML VIAL ONE (15:09)
[2024-07-06] MEDS ORDERED: LABETALOL HCL 20 MG/4 ML VIAL ONE (15:24)
[2024-07-06] MEDS ORDERED: ACETAMINOPHEN 325 MG TABLET (FP) PO PRN (15:52)
[2024-07-06] MEDS ORDERED: METHYL SALICYLATE/MENTHOL 30 GM TUBE TP PRN (15:52)
[2024-07-06] MEDS ORDERED: POLYETHYLENE GLYCOL (HEALTHYLAX) 3350 17 GM PACKET PO PRN (15:52)
[2024-07-06] MEDS ORDERED: NITROGLYCERIN SUBLINGUAL 1/150 0.4 MG TAB SL PRN (15:52)
[2024-07-06] MEDS ORDERED: hydrALAZINE HCL 20 MG/ML VIAL ONE (15:52)
[2024-07-06] MEDS: hydrALAZINE HCL 20 MG/ML VIAL IVPUSH PRN (16:53)
[2024-07-06] MEDS: INSULIN ASPART SLIDING SCALE (NOVOLOG) 1 VIAL SQ SCH (17:28)
[2024-07-06] MEDS: LACTATED RINGERS SOLUTION 1,000 ML IV SCH (17:40)
[2024-07-06] MEDS: SEVELAMER CARBONATE 0.8 GM POWDER PACKET PO SCH (18:39)
[2024-07-06] MEDS: HEPARIN NA (PORCINE) 5,000 UNITS/ML 1ML VIAL SQ SCH (18:55)
[2024-07-06] MEDS: CHLORHEXIDINE GLUCONATE 4% CLEANSER FOR DECOLONIZATION TP SCH (21:49)
[2024-07-06] MEDS: DOCUSATE SODIUM 100 MG CAPSULE (FP) PO SCH (21:49)
[2024-07-06] MEDS: MUPIROCIN 2% TOPICAL OINTMENT FOR DECOLONIZATION NS SCH (21:49)
[2024-07-06] MEDS: ATORVASTATIN CA 80 MG TABLET (FP) PO SCH (21:50)
[2024-07-06] MEDS: GABAPENTIN 300 MG CAPSULE PO SCH (21:50)
[2024-07-06] MEDS: RANOLAZINE E.R. 500 MG TABLET (FP) PO SCH (21:51)
[2024-07-06] MEDS: CALCIUM CARBONATE 650 MG TABLET PO SCH (22:00)
[2024-07-07] MEDS: EMPAGLIFLOZIN (JARDIANCE) 10 MG TABLET PO SCH (06:50)
[2024-07-07 07:02] LABS: HEMATOCRIT 33.8 % (35.4-49); HEMOGLOBIN 11.2 GM/dL (11.7-16.9); MCH 29.7 pg (25.7-33.7); MCHC 33.2 g/dl (32.0-35.9); MEAN CELL VOLUME 89.5 fl (80-96); MEAN PLT VOLUME 8.1 fl (7.5-11.1); PLATELET COUNT 202 10^3/uL (134-434); RBC 3.78 M/mm3 (4.00-5.60); RDW 14.8 % (11.9-15.9); WHITE BLOOD COUNT 6.5 K/mm3 (4.0-10.0)
[2024-07-07 07:10] LABS: CHLORIDE 104 mmol/L (98-107); POTASSIUM 4.4 mmol/L (3.5-5.1); SODIUM 135 mmol/L (136-145)
[2024-07-07 07:14] LABS: ALBUMIN 3.6 g/dl (3.4-5.0); ANION GAP 8 mmol/L (4-13); BLOOD UREA NITROGEN 47.6 mg/dL (7-18); CO2 23 mmol/L (21-32); GLUCOSE,RANDOM 104 mg/dL (74-106)
[2024-07-07 07:17] LABS: CREATININE 2.8 mg/dL (0.55-1.3); SGOT/AST 30 U/L (15-37); SGPT/ALT 23 U/L (13-61)
[2024-07-07 07:19] LABS: BILIRUBIN,TOTAL 0.8 mg/dL (0.2-1)
[2024-07-07 07:20] LABS: ALK PHOS 72 U/L (45-117)
[2024-07-07 07:21] LABS: CALCIUM 6.6 mg/dL (8.5-10.1)
[2024-07-07] MEDS: LABETALOL HCL 20 MG/4 ML VIAL IVPUSH ONE ×2 (08:12→08:14)
[2024-07-07] MEDS: LACTATED RINGERS SOLUTION 1,000 ML IV SCH ×2 (08:13→21:34)
[2024-07-07] MEDS: CALCIUM GLUCONATE IN NACL 1 GM/50 ML BAG IVPB ONE (09:19)
[2024-07-07] MEDS: CALCITRIOL 0.25 MCG CAPSULE (FP) PO SCH (09:20)
[2024-07-07] MEDS: CLOPIDOGREL BISULFATE 75 MG TABLET (FP) PO SCH (09:20)
[2024-07-07] MEDS: ASPIRIN COATED 81 MG TABLET.EC PO SCH ×2 (09:20→10:05)
[2024-07-07] MEDS: LOSARTAN POTASSIUM 50 MG TABLET PO SCH (09:21)
[2024-07-07] MEDS: ISOSORBIDE MONONITRATE 30 MG TAB.SR.24H (FP) PO SCH (09:21)
[2024-07-07] MEDS ORDERED: ASPIRIN 81 MG CHEWABLE TABLETS PO SCH (10:00)
[2024-07-07] MEDS: VERICIGUAT PO SCH (10:04)
[2024-07-07] MEDS: LACTULOSE 20 GM/30 ML UDC (FOR ORAL USE ONLY) PO PRN (10:21)
[2024-07-07] MEDS: MINERAL OIL/PET HY-PHL TOPICAL OINTMENT 454 GM JAR TP SCH (11:41)
[2024-07-07] MEDS ORDERED: hydrALAZINE HCL 20 MG/ML VIAL IVPUSH PRN (19:12)
[2024-07-07] MEDS ORDERED: ACETAMINOPHEN 325 MG TABLET (FP) PO PRN (19:12)
[2024-07-07] MEDS ORDERED: LACTULOSE 20 GM/30 ML UDC (FOR ORAL USE ONLY) PO PRN ×2 (19:12→19:44)
[2024-07-07] MEDS ORDERED: POLYETHYLENE GLYCOL (HEALTHYLAX) 3350 17 GM PACKET PO PRN (19:12)
[2024-07-07] MEDS: DOCUSATE SODIUM 100 MG CAPSULE (FP) PO SCH (21:32)
[2024-07-07] MEDS: GABAPENTIN 300 MG CAPSULE PO SCH (21:33)
[2024-07-07] MEDS: METOPROLOL TARTRATE 25 MG TABLET (FP) PO SCH (21:33)
[2024-07-07] MEDS: ATORVASTATIN CA 80 MG TABLET (FP) PO SCH (21:33)
[2024-07-07] MEDS: INSULIN ASPART SLIDING SCALE (NOVOLOG) 1 VIAL SQ SCH (21:34)
[2024-07-07] MEDS: RANOLAZINE E.R. 500 MG TABLET (FP) PO SCH (21:36)
[2024-07-07] MEDS: CALCIUM CARBONATE 650 MG TABLET PO SCH (21:36)
[2024-07-07] MEDS ORDERED: CHLORHEXIDINE GLUCONATE 4% CLEANSER FOR DECOLONIZATION TP SCH (22:00)
[2024-07-07] MEDS ORDERED: MUPIROCIN 2% TOPICAL OINTMENT FOR DECOLONIZATION NS SCH (22:00)
[2024-07-07] MEDS ORDERED: ATORVASTATIN CA 40 MG TABLET (FP) PO SCH (22:00)
[2024-07-08] MEDS: HEPARIN NA (PORCINE) 5,000 UNITS/ML 1ML VIAL SQ SCH (03:37)
[2024-07-08] MEDS: EMPAGLIFLOZIN (JARDIANCE) 10 MG TABLET PO SCH (06:01)
[2024-07-08] MEDS: INSULIN (LEVEMIR) 100 UNITS/ML UNITS SQ SCH (06:03)
[2024-07-08] MEDS: NITROGLYCERIN SUBLINGUAL 1/150 0.4 MG TAB SL PRN (09:44)
[2024-07-08] MEDS ORDERED: CLOPIDOGREL BISULFATE 75 MG TABLET (FP) PO SCH (10:00)
[2024-07-08] MEDS: NITROGLYCERIN SUBLINGUAL 1/150 0.4 MG TAB SL ONE (10:11)
[2024-07-08] MEDS: CALCITRIOL 0.25 MCG CAPSULE (FP) PO SCH (10:22)
[2024-07-08] MEDS: ASPIRIN COATED 81 MG TABLET.EC PO SCH (10:22)
[2024-07-08] MEDS: LOSARTAN POTASSIUM 50 MG TABLET PO SCH (10:22)
[2024-07-08] MEDS: GABAPENTIN 300 MG CAPSULE PO SCH (10:22)
[2024-07-08] MEDS: CLOPIDOGREL BISULFATE 75 MG TABLET (FP) PO SCH (10:22)
[2024-07-08 10:23] LABS: BASO % 0.6 % (0-2.0); EOS % 6.1 % (0-4.5); HEMATOCRIT 31.2 % (35.4-49); HEMOGLOBIN 10.3 GM/dL (11.7-16.9); MCH 29.8 pg (25.7-33.7); MCHC 32.9 g/dl (32.0-35.9); MEAN CELL VOLUME 90.4 fl (80-96); MEAN PLT VOLUME 7.8 fl (7.5-11.1); MONO % 12.6 % (3.8-10.2); NEUT % 55.7 % (42.8-82.8); PLATELET COUNT 191 10^3/uL (134-434); RBC 3.45 M/mm3 (4.00-5.60); RDW 14.6 % (11.9-15.9)
[2024-07-08] MEDS: CALCIUM GLUC IN NACL, ISO-OSM 1 GM/50 ML BAG IVPB ONE (10:24)
[2024-07-08] MEDS: METHYL SALICYLATE/MENTHOL 30 GM TUBE TP PRN (10:25)
[2024-07-08 10:37] LABS: POTASSIUM 4.3 mmol/L (3.5-5.1)
[2024-07-08 10:39] LABS: ALBUMIN 3.7 g/dl (3.4-5.0); CALCIUM 7.1 mg/dL (8.5-10.1)
[2024-07-08 10:40] LABS: BLOOD UREA NITROGEN 44.8 mg/dL (7-18); MAGNESIUM 2.3 mg/dL (1.8-2.4)
[2024-07-08 10:43] LABS: CREATININE 2.9 mg/dL (0.55-1.3); PHOSPHOROUS 5.3 mg/dL (2.5-4.9)
[2024-07-08 10:44] LABS: BILIRUBIN,TOTAL 0.9 mg/dL (0.2-1); TOT PROT 7.3 g/dl (6.4-8.2)
[2024-07-08] MEDS: MINERAL OIL/PET HY-PHL TOPICAL OINTMENT 454 GM JAR TP SCH (10:48)
[2024-07-08] MEDS: SEVELAMER CARBONATE 0.8 GM POWDER PACKET PO SCH (11:01)
[2024-07-08] MEDS: ISOSORBIDE MONONITRATE 30 MG TAB.SR.24H (FP) PO SCH (11:30)
[2024-07-08] MEDS: VERICIGUAT PO SCH (11:48)
[2024-07-08] MEDS: CALCIUM GLUCONATE IN NACL 1 GM/50 ML BAG IVPB ONE (15:49)
[2024-07-08] MEDS: CALCIUM ACETATE 667 MG CAPSULE (FP) PO SCH (17:33)
[2024-07-09 07:54] LABS: POTASSIUM 4.4 mmol/L (3.5-5.1)
[2024-07-09 07:58] LABS: CALCIUM 7.1 mg/dL (8.5-10.1)
[2024-07-09 07:59] LABS: ALBUMIN 3.4 g/dl (3.4-5.0); BLOOD UREA NITROGEN 51.8 mg/dL (7-18); MAGNESIUM 2.3 mg/dL (1.8-2.4)
[2024-07-09 08:02] LABS: CREATININE 2.9 mg/dL (0.55-1.3); PHOSPHOROUS 6.6 mg/dL (2.5-4.9)
[2024-07-09 08:03] LABS: BILIRUBIN,TOTAL 0.6 mg/dL (0.2-1); TOT PROT 6.8 g/dl (6.4-8.2)
[2024-07-09] MEDS: ISOSORBIDE MONONITRATE 60 MG TAB.SR.24H (FP) PO SCH (09:14)
[2024-07-09] MEDS: MUPIROCIN 2% TOPICAL OINTMENT FOR DECOLONIZATION NS SCH (16:03)
[2024-07-09] MEDS: CHLORHEXIDINE GLUCONATE 4% CLEANSER FOR DECOLONIZATION TP SCH (16:03)
[2024-07-11] MEDS: ONDANSETRON 4 MG/2 ML VIAL IVPUSH ONE (10:23)
[2024-07-11] MEDS: PANTOPRAZOLE 40 MG TABLET PO SCH (10:24)
[2024-07-11 13:53] VITALS: BP 133/62; PULSE 82; RESP 19; TEMP 97
== END 2024-07-11 13:54 | disposition short-term general hospital (02) | DRG 181 ==
LOC: JER 10:56 → JERBED 19:51 → J8W 22:09 → JICU 07-06 17:56 → J6S 07-07 19:11 → J4W 07-08 14:32
PROVIDERS: ADMIT Internal Medicine; ATTEND Family Medicine
PROC: 047D3ZZ Dilation of Left Common Iliac Artery, Percutaneous Approach (ICD-10-PCS; 2024-07-06)
PROC: 3E03317 Introduction of Other Thrombolytic into Peripheral Vein, Percutaneous Approach (ICD-10-PCS; 2024-07-06)
PROC: B41DZZZ Fluoroscopy of Aorta and Bilateral Lower Extremity Arteries (ICD-10-PCS; 2024-07-06)
PROC: 047C3ZZ Dilation of Right Common Iliac Artery, Percutaneous Approach (ICD-10-PCS; principal; 2024-07-06 13:00)
DX: I74.09 Other arterial embolism and thrombosis of abdominal aorta (principal); I13.0 Hypertensive heart and chronic kidney disease with heart failure and stage 1 through stage 4 chronic kidney disease, or unspecified chronic kidney disease; I50.42 Chronic combined systolic (congestive) and diastolic (congestive) heart failure; N18.4 Chronic kidney disease, stage 4 (severe); E83.51 Hypocalcemia; G62.9 Polyneuropathy, unspecified; I70.0 Atherosclerosis of aorta; E11.9 Type 2 diabetes mellitus without complications; E78.5 Hyperlipidemia, unspecified; I73.9 Peripheral vascular disease, unspecified; I25.10 Atherosclerotic heart disease of native coronary artery without angina pectoris; E66.9 Obesity, unspecified; Z68.38 Body mass index [BMI] 38.0-38.9, adult; K59.00 Constipation, unspecified; F17.210 Nicotine dependence, cigarettes, uncomplicated; Z95.5 Presence of coronary angioplasty implant and graft; Z95.1 Presence of aortocoronary bypass graft
CPT/HCPCS: 36415; 71045-TC-FY; 73630-TC-LT; 73630-TC-RT-FY; 76000-TC-FY; 76775-TC; 76856-TC; 80048; 80053; 81003; 82043; 82306; 82550; 82570; 82962; 83036; 83735; 83970; 84100; 84156; 84484; 85025; 85027; 85610; 85730; 86850; 86900; 86901; 86922; 93005; 93010; 94010; 94760; 99285-25; C1760; C1769; C1894; J0131; J1644

== ENCOUNTER 2024-07-17 14:36 | Observation (INO) | payer OTHER ==
[2024-07-17] MEDS: ACETAMINOPHEN 1000 MG/100 ML BAG IVPB ONE (17:10)
[2024-07-17 17:43] LABS: ALBUMIN 3.5 g/dl (3.4-5.0); CALCIUM 7.4 mg/dL (8.5-10.1)
[2024-07-17 17:44] LABS: BLOOD UREA NITROGEN 56.6 mg/dL (7-18)
[2024-07-17 17:47] LABS: CREATININE 3.2 mg/dL (0.55-1.3)
[2024-07-17 17:48] LABS: BILIRUBIN,TOTAL 0.4 mg/dL (0.2-1); TOT PROT 7.4 g/dl (6.4-8.2)
[2024-07-17 18:30] LABS: BASO % 0.9 % (0-2.0); EOS % 6.2 % (0-4.5); HEMATOCRIT 28.7 % (35.4-49); HEMOGLOBIN 9.5 GM/dL (11.7-16.9); LYMPH % 30.8 % (8-40); MCH 29.4 pg (25.7-33.7); MEAN CELL VOLUME 89.1 fl (80-96); MEAN PLT VOLUME 7.4 fl (7.5-11.1); MONO % 11.1 % (3.8-10.2); PLATELET COUNT 272 10^3/uL (134-434); RBC 3.22 M/mm3 (4.00-5.60); RDW 14.2 % (11.9-15.9)
[2024-07-17] MEDS: LACTATED RINGERS SOLUTION 1000 ML INFUS.BAG IV ONE (19:22)
[2024-07-17] MEDS ORDERED: LIDOCAINE 4% PATCH TP ONE (20:30)
[2024-07-17] MEDS: SODIUM CHLORIDE 1,000 ML IV SCH (20:36)
[2024-07-17] MEDS: LIDOCAINE 4% PATCH TP ONE (20:36)
[2024-07-17] MEDS: LIDOCAINE PATCH REMOVAL MC SCH (21:15)
[2024-07-17] MEDS ORDERED: HEPARIN NA (PORCINE) 5,000 UNITS/ML 1ML VIAL ONE (22:11)
[2024-07-17] MEDS: HEPARIN NA (PORCINE) 5,000 UNITS/ML 1ML VIAL SQ SCH (22:17)
[2024-07-18] MEDS: ACETAMINOPHEN 325 MG TABLET (FP) PO ONE (02:29)
[2024-07-18] MEDS: oxyCODONE HCL 5 MG TABLET PO ONE (02:30)
[2024-07-18 05:26] VITALS: BMI 37.2
[2024-07-18] MEDS: INSULIN ASPART SLIDING SCALE (NOVOLOG) 1 VIAL SQ SCH ×2 (06:22→17:51)
[2024-07-18] MEDS: CLOPIDOGREL BISULFATE 75 MG TABLET (FP) PO SCH (09:12)
[2024-07-18] MEDS: ISOSORBIDE MONONITRATE 30 MG TAB.SR.24H (FP) PO SCH (09:12)
[2024-07-18] MEDS: METOPROLOL TARTRATE 25 MG TABLET (FP) PO SCH ×2 (09:12→22:45)
[2024-07-18] MEDS: RANOLAZINE E.R. 500 MG TABLET (FP) PO SCH ×2 (09:12→22:45)
[2024-07-18] MEDS: NICOTINE 7 MG/24 HOURS TOPICAL PATCH TD SCH (09:12)
[2024-07-18] MEDS: LIDOCAINE PATCH REMOVAL MC ONE (09:13)
[2024-07-18] MEDS ORDERED: ALBUTEROL SO4 2.5/IPRATROPIUM 0.5 INH SOL 3 ML VIAL.NEB. NEB PRN (09:32)
[2024-07-18] MEDS: ALBUTEROL SO4 0.083% IH SOL 2.5 MG/3 ML VIAL.NEB. NEB ONE (09:35)
[2024-07-18] MEDS: methylPREDNISolone NA SUCC 40 MG/1 ML VIAL IVPUSH ONE (09:38)
[2024-07-18 10:22] LABS: CHLORIDE 107 mmol/L (98-107); POTASSIUM 4.2 mmol/L (3.5-5.1); SODIUM 137 mmol/L (136-145)
[2024-07-18 10:23] LABS: HEMATOCRIT 28.2 % (35.4-49); HEMOGLOBIN 9.5 GM/dL (11.7-16.9); MCHC 33.7 g/dl (32.0-35.9); MEAN PLT VOLUME 7.6 fl (7.5-11.1); PLATELET COUNT 242 10^3/uL (134-434); RBC 3.17 M/mm3 (4.00-5.60); WHITE BLOOD COUNT 4.2 K/mm3 (4.0-10.0)
[2024-07-18 10:25] LABS: ALBUMIN 3.3 g/dl (3.4-5.0); ANION GAP 7 mmol/L (4-13); BLOOD UREA NITROGEN 47.5 mg/dL (7-18); CO2 24 mmol/L (21-32); GLUCOSE,RANDOM 214 mg/dL (74-106); MAGNESIUM 2.3 mg/dL (1.8-2.4)
[2024-07-18 10:28] LABS: CREATININE 2.9 mg/dL (0.55-1.3); PHOSPHOROUS 5.1 mg/dL (2.5-4.9); SGOT/AST 13 U/L (15-37); SGPT/ALT 12 U/L (13-61)
[2024-07-18 10:29] LABS: BILIRUBIN,TOTAL 0.4 mg/dL (0.2-1)
[2024-07-18 10:30] LABS: CALCIUM 6.9 mg/dL (8.5-10.1); TOT PROT 6.9 g/dl (6.4-8.2)
[2024-07-18 10:31] LABS: ALK PHOS 60 U/L (45-117)
[2024-07-18] MEDS: ASPIRIN 325 MG TABLET PO ONE (10:34)
[2024-07-18 10:45] LABS: BASO % 1.2 % (0-2.0); EOS % 6.8 % (0-4.5); HEMATOCRIT 27.2 % (35.4-49); HEMOGLOBIN 9.1 GM/dL (11.7-16.9); LYMPH % 48.7 % (8-40); MCH 30.3 pg (25.7-33.7); MCHC 33.5 g/dl (32.0-35.9); MEAN CELL VOLUME 90.4 fl (80-96); MEAN PLT VOLUME 7.4 fl (7.5-11.1); MONO % 10.2 % (3.8-10.2); NEUT % 33.1 % (42.8-82.8); PLATELET COUNT 259 10^3/uL (134-434); RBC 3.01 M/mm3 (4.00-5.60); RDW 14.4 % (11.9-15.9); WHITE BLOOD COUNT 4.6 K/mm3 (4.0-10.0)
[2024-07-18 11:14] LABS: N-TERMINAL BNP 1047.5 pg/ml (5-125)
[2024-07-18] MEDS: CALCIUM GLUCONATE IN NACL 1 GM/50 ML BAG IVPB ONE (11:36)
[2024-07-18] MEDS ORDERED: NITROGLYCERIN SUBLINGUAL 1/150 0.4 MG TAB SL PRN (12:00)
[2024-07-18] MEDS ORDERED: ATORVASTATIN CA 40 MG TABLET (FP) PO SCH (22:00)
[2024-07-18] MEDS: HEPARIN NA (PORCINE) 5,000 UNITS/ML 1ML VIAL SQ SCH (22:44)
[2024-07-18] MEDS: ATORVASTATIN CA 40 MG TABLET (FP) PO SCH (22:45)
[2024-07-19 09:01] LABS: BASO % 0.6 % (0-2.0); EOS % 1.1 % (0-4.5); HEMATOCRIT 28.4 % (35.4-49); HEMOGLOBIN 9.5 GM/dL (11.7-16.9); LYMPH % 22.2 % (8-40); MCH 29.8 pg (25.7-33.7); MCHC 33.4 g/dl (32.0-35.9); MEAN CELL VOLUME 89.2 fl (80-96); MEAN PLT VOLUME 7.5 fl (7.5-11.1); MONO % 10.9 % (3.8-10.2); NEUT % 65.2 % (42.8-82.8); PLATELET COUNT 303 10^3/uL (134-434); RBC 3.19 M/mm3 (4.00-5.60); RDW 14.3 % (11.9-15.9); WHITE BLOOD COUNT 6.7 K/mm3 (4.0-10.0)
[2024-07-19 09:33] LABS: POTASSIUM 5.1 mmol/L (3.5-5.1)
[2024-07-19 09:37] LABS: ALBUMIN 3.6 g/dl (3.4-5.0); BLOOD UREA NITROGEN 50.5 mg/dL (7-18); CALCIUM 7.1 mg/dL (8.5-10.1)
[2024-07-19 09:41] LABS: CREATININE 2.9 mg/dL (0.55-1.3)
[2024-07-19 09:42] LABS: BILIRUBIN,TOTAL 0.3 mg/dL (0.2-1); TOT PROT 7.3 g/dl (6.4-8.2)
[2024-07-19] MEDS: ASPIRIN 81 MG CHEWABLE TABLETS PO SCH (10:20)
[2024-07-19] MEDS: ISOSORBIDE MONONITRATE 30 MG TAB.SR.24H (FP) PO SCH (10:20)
[2024-07-19] MEDS: CLOPIDOGREL BISULFATE 75 MG TABLET (FP) PO SCH (10:20)
[2024-07-19] MEDS: NICOTINE 7 MG/24 HOURS TOPICAL PATCH TD SCH (10:21)
[2024-07-19] MEDS: ALBUTEROL SO4 2.5/IPRATROPIUM 0.5 INH SOL 3 ML VIAL.NEB. NEB PRN (11:45)
[2024-07-19] MEDS: ACETAMINOPHEN 1000 MG/100 ML BAG IVPB PRN (11:47)
[2024-07-20] MEDS ORDERED: FAMOTIDINE 20 MG/50 ML IVPB 20 MG/50 ML MG IVPB ONE (09:50)
[2024-07-20] MEDS ORDERED: ALBUTEROL SO4 0.083% IH SOL 2.5 MG/3 ML VIAL.NEB. NEB ONE (09:51)
[2024-07-20] MEDS ORDERED: METOPROLOL TARTRATE 50 MG TABLET (FP) PO SCH (10:11)
[2024-07-20] MEDS ORDERED: METOPROLOL TARTRATE 25 MG TABLET (FP) PO ONE (10:18)
[2024-07-20] MEDS: ALBUTEROL SO4 2.5/IPRATROPIUM 0.5 INH SOL 3 ML VIAL.NEB. NEB ONE (10:18)
[2024-07-20] MEDS ORDERED: RANOLAZINE E.R. 500 MG TABLET (FP) PO ONE (10:19)
[2024-07-20 10:28] LABS: BASO % 1.3 % (0-2.0); EOS % 5.4 % (0-4.5); HEMATOCRIT 28.8 % (35.4-49); HEMOGLOBIN 9.5 GM/dL (11.7-16.9); LYMPH % 38.4 % (8-40); MCH 29.7 pg (25.7-33.7); MEAN CELL VOLUME 90.1 fl (80-96); MEAN PLT VOLUME 7.6 fl (7.5-11.1); MONO % 10.6 % (3.8-10.2); NEUT % 44.3 % (42.8-82.8); PLATELET COUNT 307 10^3/uL (134-434); RDW 14.4 % (11.9-15.9); WHITE BLOOD COUNT 5.2 K/mm3 (4.0-10.0)
[2024-07-20 10:47] LABS: CHLORIDE 110 mmol/L (98-107); SODIUM 140 mmol/L (136-145)
[2024-07-20 10:49] LABS: ALBUMIN 3.4 g/dl (3.4-5.0); ANION GAP 5 mmol/L (4-13); BLOOD UREA NITROGEN 47.8 mg/dL (7-18); CALCIUM 6.9 mg/dL (8.5-10.1); CO2 26 mmol/L (21-32); GLUCOSE,RANDOM 173 mg/dL (74-106)
[2024-07-20 10:52] LABS: CREATININE 2.9 mg/dL (0.55-1.3); SGOT/AST 8 U/L (15-37); SGPT/ALT 14 U/L (13-61)
[2024-07-20 10:53] LABS: BILIRUBIN,TOTAL 0.4 mg/dL (0.2-1); TOT PROT 7.2 g/dl (6.4-8.2)
[2024-07-20 10:55] LABS: ALK PHOS 64 U/L (45-117)
[2024-07-20] MEDS: ALBUTEROL SO4 2.5/IPRATROPIUM 0.5 INH SOL 3 ML VIAL.NEB. NEB SCH (11:20)
[2024-07-20] MEDS ORDERED: CALCIUM GLUCONATE 10% - 1,000 MG/10 ML VIAL IVPB ONE (11:45)
[2024-07-20] MEDS: METOPROLOL TARTRATE 25 MG TABLET (FP) PO ONE (12:42)
[2024-07-20] MEDS: ISOSORBIDE MONONITRATE 30 MG TAB.SR.24H (FP) PO SCH (12:42)
[2024-07-20] MEDS: RANOLAZINE E.R. 500 MG TABLET (FP) PO ONE (12:44)
[2024-07-20] MEDS: RANOLAZINE E.R. 500 MG TABLET (FP) PO SCH (21:32)
[2024-07-20] MEDS: METOPROLOL TARTRATE 50 MG TABLET (FP) PO SCH (21:34)
[2024-07-21] MEDS: NITROGLYCERIN SUBLINGUAL 1/150 0.4 MG TAB SL PRN (11:14)
[2024-07-21] MEDS ORDERED: ISOSORBIDE MONONITRATE 30 MG TAB.SR.24H (FP) PO SCH (11:40)
[2024-07-21] MEDS: ISOSORBIDE MONONITRATE 30 MG TAB.SR.24H (FP) PO ONE (15:57)
[2024-07-21] MEDS: METOPROLOL TARTRATE 25 MG TABLET (FP) PO ONE (15:57)
[2024-07-21] MEDS: METOPROLOL TARTRATE 25 MG TABLET (FP) PO SCH (21:37)
[2024-07-21 21:45] VITALS: RESP 18
[2024-07-22 07:27] VITALS: BP 121/50; PULSE 69; TEMP 98.4
== END 2024-07-22 08:16 | disposition home or self-care (01) ==
LOC: JER 14:36 → JERBED 19:47 → J6S 23:40 → J4S 07-18 15:13
PROVIDERS: ADMIT Internal Medicine; ATTEND Family Medicine
PROC: 3E0F7GC Introduction of Other Therapeutic Substance into Respiratory Tract, Via Natural or Artificial Opening (ICD-10-PCS; principal; 2024-07-17)
PROC: 3E033NZ Introduction of Analgesics, Hypnotics, Sedatives into Peripheral Vein, Percutaneous Approach (ICD-10-PCS; 2024-07-17)
PROC: 3E033GC Introduction of Other Therapeutic Substance into Peripheral Vein, Percutaneous Approach (ICD-10-PCS; 2024-07-17)
PROC: 3E023GC Introduction of Other Therapeutic Substance into Muscle, Percutaneous Approach (ICD-10-PCS; 2024-07-17)
PROC: 3E013VG Introduction of Insulin into Subcutaneous Tissue, Percutaneous Approach (ICD-10-PCS; 2024-07-17)
PROC: 3E0337Z Introduction of Electrolytic and Water Balance Substance into Peripheral Vein, Percutaneous Approach (ICD-10-PCS; 2024-07-17)
DX: I25.110 Atherosclerotic heart disease of native coronary artery with unstable angina pectoris (principal); E11.40 Type 2 diabetes mellitus with diabetic neuropathy, unspecified; E78.5 Hyperlipidemia, unspecified; M79.671 Pain in right foot; J44.9 Chronic obstructive pulmonary disease, unspecified; R07.9 Chest pain, unspecified; I73.9 Peripheral vascular disease, unspecified; I50.20 Unspecified systolic (congestive) heart failure; K76.0 Fatty (change of) liver, not elsewhere classified; Z87.19 Personal history of other diseases of the digestive system; Z87.891 Personal history of nicotine dependence
CPT/HCPCS: 36415; 71045-TC-FY; 80048; 80053; 82550; 82962; 83605; 83735; 83880; 84100; 84484; 85025; 85027; 93005; 93010; 93306-TC; 94640; 96361; 96372; 96374; 96375; 96376; 97116-GP; 97161-GP; 99285-25; G0378; J0131; J1644